=== PATIENT | female | born 1950 | race Hispanic/Latino ===

== ENCOUNTER → 2019-02-12 | Outpatient (CLI) | payer MEDICARE | END | disposition home or self-care (01) | LOC: SHCH 13:12 | PROVIDERS: ATTEND Internal Medicine Cardiovascular Disease | DX: I35.1 Nonrheumatic aortic (valve) insufficiency (principal) | CPT/HCPCS: 93306 ==

== ENCOUNTER → 2019-02-14 | Outpatient (CLI) | payer MEDICARE ==
[~2019-02-14] VITALS: Ht 152.4 cm; Wt 83.0 kg
[~2019-02-14] MED LIST: REGADENOSON 0.4 MG/5 ML PF SYG IVP SCH
== END | disposition home or self-care (01) ==
LOC: SHCH 07:49
PROVIDERS: ATTEND Internal Medicine Cardiovascular Disease
DX: R94.31 Abnormal electrocardiogram [ECG] [EKG] (principal)
CPT/HCPCS: 78452; 93017; 96374; A9500 ×2; J2785

== ENCOUNTER 2024-11-25 19:49 | Emergency (ER) | payer MEDICARE, OTHER ==
[~2024-11-25] VITALS: Ht 154.9 cm; Wt 83.0 kg
[2024-11-25] MEDS: GABAPENTIN 300 MG CAPSULE PO ONE (20:44)
[2024-11-25] MEDS: ketOROlac 15MG/ML VIAL (15MG/ML) IV ONE (20:44)
[2024-11-25] MEDS: morPHINE 2 MG SYG IVP ONE (20:45)
--- NOTE | 2024-11-25 22:46 | HMCIMG ---
US VENOUS DOPPLER UNILATERAL HISTORY: Pain COMPARISON: None TECHNIQUE: Left lower extremity venous Doppler ultrasound study was performed. FINDINGS: The left common femoral, femoral, popliteal, and posterior tibial veins are visualized. Normal flow with augmentation and compressibilities are demonstrated. Left greater saphenous vein is patent. IMPRESSION: 1. No evidence of deep venous thrombosis is seen.
--- NOTE | 2024-11-25 22:50 | HMCIMG ---
US ARTERIAL UNILA LOW EXT DUPL HISTORY: Left lower extremity arterial occlusion COMPARISON: None TECHNIQUE: Left lower extremity arterial Doppler ultrasound study was performed. FINDINGS: Normal triphasic and biphasic arterial waveforms are noted in the left common femoral, deep femoral, superficial femoral, popliteal, posterior tibial and dorsalis pedal arteries. On the lateral, the peak systolic velocity of the common femoral artery is 174 cm/s, the proximal femoral artery is 144 cm/s, the mid femoral artery is 117 cm/s, the distal femoral artery is 119 cm/s, the proximal popliteal artery is 121 cm/s, the distal popliteal artery is 110 cm/s, the anterior tibial artery is 119 cm/s, the posterior tibial artery artery is 117 cm/s,and the dorsalis pedal artery is 106 cm/s. IMPRESSION: 1. Atherosclerotic disease. 2. Otherwise normal triphasic and biphasic arterial waveforms noted of the left lower extremity artery system.
[2024-11-25 23:20] VITALS: BP 162/60; PULSE 78; RESP 18; TEMP 98.1; O2SAT 95
--- NOTE | 2024-11-25 23:21 | ERN ---
General Chief Complaint: Lower Extremity Pain/Injury Stated Complaint: LEFT SCIATICA/LEG PAIN Time Seen by MD: 19:52 Time Seen by Midlevel: 19:52 Source: patient History of Present Illness Initial Comments The patient is a 74-year-old female being brought in by EMS for evaluation of left lower extremity pain that has been ongoing for the last week. Patient was seen at [facility] twice in the last four days and was diagnosed with sciatica. The patient already had x-rays and CT scans performed which were all negative. Today she reports with continued pain. The pain is isolated to her left lateral thigh area and radiates down to her left heel. The pain is described as a burning sensation. Allergies: Coded Allergies: No Known Drug Allergies (Verified Allergy, 07/30/13) Past Medical History Past Medical History: Diabetes-Type II Past Surgical History: None ROS Dictation CONSTITUTIONAL: Negative except for HPI HEAD/FACE: Negative except for HPI EENT: Negative except for HPI RESPIRATORY: Negative except for HPI GASTROINTESTINAL/ABDOMINAL: Negative except for HPI GENITOURINARY: Negative except for HPI MUSCULOSKELETAL: Negative except for HPI INTEGUMENTARY: Negative except for HPI NEUROLOGICAL/PSYCH: Negative except for HPI HEMATOLOGIC/LYMPHATIC: Negative except for HPI All Systems Negative, Except as noted above. 13 point review of systems assessed and all negative except for above. Physical Exam Physical Exam Dictation Vital Signs reviewed General Appearance: Alert, oriented x 3, no acute distress, well developed, nourished. Head and Face: non-traumatic. Eyes: PERRL, pink conjunctivas, eyelid no trauma, anterior chamber with arcus senilis. Ears: Pinnas intact and no signs of trauma or erythema ear canals clear and no discharge TM no erythema Nose: No discharge, no bleeding. Oropharynx: Mouth normal, tongue pink, pharynx clear,no erythema, tonsils no exudates, no abscesses noted, mucous membrane moist Neck: Supple, non-tender, no thyromegaly, no masses, no JVD, no bruits Breast:Deferred Chest:No tenderness, no crepitus, no paradoxical movement, no retractions Lungs:Clear, well-ventilated, symmetric, no rales, no wheezing, no rhonchi, no stridor, good breath sounds bilaterally Heart: Regular rate, regular rhythm, no murmur, no gallops Vascular: no peripheral edema, Abdomen: Soft, positive bowel sounds, nondistended, no guarding, nontender, no rebound, no masses no hepatomegaly, no splenomegaly, no Garcia's sign, no hernias. Rectal: Deferred Genital: Deferred Neurological: Normal speech, motor function intact, sensory function intact Musculoskeletal: Neck nontender, full range of motion, back nontender, full range of motion, Extremities: nontender, full range of motion Skin: Color pink, dry, no turgor, no rash, no lacerations, no abrasions, no contusions. Lymphatic: Deferred MDM MDM: The patient is a 74-year-old female being brought in by EMS for evaluation of left lower extremity pain that has been ongoing for the last week. Patient was seen at [facility] twice in the last four days and was diagnosed with sciatica. The patient already had x-rays and CT scans performed which were all negative. Today she reports with continued pain. The pain is isolated to her left lateral thigh area and radiates down to her left heel. The pain is described as a burning sensation. Initial vital signs are stable. On physical examination there are no obvious signs of external trauma. There was no gross swelling. There is 2+ DP, PT p ulses bilaterally. Patient was given Toradol and morphine in the emergency department and states her pain only improved slightly. A Doppler and arterial ultrasound were performed to rule out an acute arterial occlusion versus DVT however both ultrasounds are negative. After 3 hours in the emergency department the patient states her pain has resolved. She states she was an appointment with her primary care doctor tomorrow and we will be following up for possibly an outpatient referral to stage setting painter apprentice or Neurosurgery. Differential diagnosis: Sciatica, neuropathic pain, arterial occlusion, DVT There are no social concerns with this patient. Prescription drug management Prescriptions will include: None Medical management and examination interpretation discussions were had by me with other qualified healthcare professionals as indicated for the patient's care. ED Course Orders Procedure Category Date Status Time Ketorolac PHA 11/25/24 Complete Tromethamine 15mg/Ml 20:30 Gabapentin 300 Mg Cap PHA 11/25/24 Complete (Neurontin 300 Mg 20:30 Morphine 2mg Syg PHA 11/25/24 Complete (Morphine 2mg Syg) 20:30 Us Venous Doppler US 11/25/24 Resulted Unilateral 21:48 Us Arterial Unila Low US 11/25/24 Resulted Ext Dupl 22:04 Current Medications Medications (Trade) Dose Ordered Sig/Masood Route PRN Reason Start Time Stop Time Status Last Admin Dose Admin Gabapentin (NEURontin 300 MG CAP) 300 mg ONCE ONCE PO 11/25/24 20:30 11/25/24 20:31 DC 11/25/24 20:44 Ketorolac Tromethamine (toRADol) 15 mg ONCE ONCE IV 11/25/24 20:30 11/25/24 20:36 DC 11/25/24 20:44 Morphine Sulfate (morPHINE 2MG SYG) 2 mg ONCE ONCE IVP 11/25/24 20:30 11/25/24 20:31 DC 11/25/24 20:45 Vital Signs Date Time Temp Pulse Resp B/P (MAP) Pulse Ox O2 Delivery O2 Flow Rate FiO2 11/25/24 22:30 98.1 78 18 157/74 95 Room Air* 0 21 11/25/24 20:02 78 18 173/71 98 Room Air* 0 21 11/25/24 19:53 98.1 79 16 157/71 95 Room Air 0 DX & DISP Disposition: Discharge Departure Impression: Primary Impression: Neuropathic pain Condition: Stable Additional Instructions: Based on your physical examination it appears your pain is neuropathic in nature. You already had x-rays and CT scans performed that were all negative. Today we performed a venous ultrasound and an arterial ultrasound that are both normal. There was no evidence of a blood clot or arterial occlusion. Please keep appointment with your primary care doctor for tomorrow as scheduled. Continue taking the pain medication you were prescribed. You may need an outpatient follow up with either Neurology or Neurosurgery for further evaluation. You may even need a follow up with stage setting painter apprentice. Referrals: CALVIN RIBEIRO (PCP) Time of Disposition: 23:15 I have reviewed the case, and I agree with, Diagnosis and Plan I performed the substantive portion of the visit. I have reviewed and personally made and approve the management plan that is documented in the note by myself or the RADHA. I acknowledge for responsibility for the patient's manage ment plan. PEREZ CHO Nov 25, 2024 23:21
== END 2024-11-25 23:30 | disposition home or self-care (01) ==
LOC: EDH 19:49
DX: M79.2 Neuralgia and neuritis, unspecified (principal); E11.9 Type 2 diabetes mellitus without complications
CPT/HCPCS: 99285; 96374; 93971; 93926; 96375; J1885; J2270

== ENCOUNTER 2024-11-30 06:36 | Inpatient (IN) | payer OTHER ==
[~2024-11-30] VITALS: Ht 154.9 cm; Wt 80.6 kg
--- NOTE | 2024-11-30 06:48 | ERN ---
General Chief Complaint: Coffee Ground Emesis Stated Complaint: COFFEE GROUNDS EMESIS X 3 Time Seen by MD: 06:44 Source: patient, EMS History of Present Illness Initial Comments Patient is a 74-year-old female who is near bed-bound because of back pain and hip pain whenever she tries to walk. Her past medical history includes arthritis diabetes and hypercholesterolemia. In the last 18 hours she has had coffee-ground emesis x3. She has never had this before. She is suspicious that it is due to one of the numerous medications that have been started recently at her health care facility. The coffee-ground emesis has been associated with nausea and vomiting and symptoms of dyspepsia. No chest pain no shortness of breath no change in her bowel habits or urinary tract function. Allergies: Coded Allergies: No Known Drug Allergies (Verified Allergy, 07/30/13) Past Medical History Past Medical History: Arthritis, Diabetes-Type II, High Cholesterol Past Surgical History: None Constitutional: (-) chills, (-) diaphoresis, (-) fever, (-) malaise, (-) weakness, (-) other documentation EENTM: (-) eye pain, (-) blurred vision, (-) tearing, (-) double vision, (-) ear pain, (-) ear discharge, (-) nose pain, (-) nose congestion, (-) throat pain, (-) Throat swelling, (-) mouth pain, (-) tooth pain, (-) mouth swelling, (-) other documentation Respiratory: (-) cough, (-) orthopnea, (-) short of breath, (-) stridor, (-) wheezing, (-) other documentation Cardiovascular: (-) chest pain, (-) edema, (-) palpitations, (-) syncope, (-) dyspnea on exertion, (-) other documentation Gastrointestinal/Abdominal: (+) nausea, (+) vomiting, (+) abdominal pain Musculoskeletal: (-) Neck pain, (-) back pain, (-) Flank Pain, (-) joint pain, (-) joint swelling, (-) muscle pain, (-) muscle stiffness, (-) gout, (-) other documentation Skin: (-) laceration, (-) contusion, (-) abrasion, (-) abscess, (-) rash, (-) change in color, (-) change in hair, (-) change in nails, (-) diaphoresis, (-) dryness, (-) other documentation Neuro: (-) altered mental status, (-) headache, (-) syncope, (-) paralysis, (-) numbness, (-) seizure, (-) pre-existing deficit, (-) tremors, (-) weakness, (-) dizziness, (-) slurred speech, (-) vertigo, (-) other documentation Physical Exam General Appearance: (+) no apparent distress Orientation: (+) alert Head/Face Trauma: No Eye: bilateral eye normal inspection, bilateral eye PERRL, bilateral eye EOMI Ear, Nose, Throat: (+) hearing grossly normal, (+) normal ENT inspection, (+) moist mucous membraine, (+) normal pharynx Neck: (+) normal inspection, (+) supple, (+) full range of motion, (+) no JVD Respiratory: (+) chest non-tender, (+) lungs clear, (+) well ventilated Heart: (+) regular, (+) no gallop Vascular: (+) no edema, (+) normal peripheral pulse Gastrointestinal: (+) soft, (+) non-tender, (+) no organomegaly, (+) bowel sound present Results Laboratory and Microbiology Lab and Micro Result Laboratory Tests Test 11/30/24 06:55 White Blood Count 12.6 K/uL (4.8-10.8) H Red Blood Count 4.50 MIL/uL (4.00-5.50) Hemoglobin 13.6 g/dL (12.0-16.0) Hematocrit 41.5 % (36-48) Mean Corpuscular Volume 92.2 fL (79-99) Mean Corpuscular Hemoglobin 30.2 pg (27.0-33.0) Mean Corpuscular Hemoglobin Concent 32.8 g/dL (32.0-36.0) Red Cell Distribution Width 13.1 % (11.0-15.5) Platelet Count 454 K/uL (130-400) H Mean Platelet Volume 9.5 fL (7.5-10.5) Immature Granulocyte % (Auto) 0.6 % (0-1) Neutrophils (%) (Auto) 92.4 % (40.0-77.0) H Lymphocytes (%) (Auto) 4.1 % (21.0-51.0) L Monocytes (%) (Auto) 2.8 % (3.0-13.0) L Eosinophils (%) (Auto) 0.0 % (0.0-8.0) Basophils (%) (Auto) 0.1 % (0.0-5.0) Neutrophils # (Auto) 11.6 K/uL (1.8-7.7) H Lymphocytes # (Auto) 0.5 K/uL (1.0-4.8) L Monocytes # (Auto) 0.4 K/uL (0.1-1.0) Eosinophils # (Auto) 0.00 K/uL (0.00-0.70) Basophils # (Auto) 0.01 K/uL (0.00-0.20) Absolute Immature Granulocyte (auto 0.07 K/uL (0-1) Nucleated Red Blood Cells 0.0 % (0.0-0.19) White Cell Morphology Comment See comments Sodium Level 134 mmol/L (136-145) L Potassium Level 4.4 mmol/L (3.5-5.1) Chloride Level 98 mmol/L (101-111) L Carbon Dioxide Level 27 mmol/L (21-32) Blood Urea Nitrogen 27 mg/dL (7-18) H Creatinine 1.4 mg/dL (0.5-1.0) H Glomerular Filtration Rate Calc 39 mL/min (>90) Random Glucose 235 mg/dL (70-105) H Total Calcium 9.1 mg/dL (8.5-10.1) Total Bilirubin 0.6 mg/dL (0.2-1.0) Aspartate Amino Transf (AST/SGOT) 17 U/L (10-37) Alanine Aminotransferase (ALT/SGPT) 18 U/L (12-78) Alkaline Phosphatase 178 U/L (50-136) H Total Protein 7.3 g/dL (6.0-8.3) Albumin 3.3 g/dL (3.5-5.0) L Labs Reviewed?: Yes EKG/XRAY/US/CT/MRI CT Scan Comment IMAGING REPORT Signed PATIENT: JESIKA CURTIS MR#: [id number] : 1950 SEX: F AGE: 74 LOCATION: [facility] ORDER 9 STATUS: REG ER REPORT#: [id number] SERVICE 8 REASON: hematamesis ORDERING PHYSICIAN: JORDY SANDOVAL MD PROCEDURE: ABD PEL WO - CT ABDOMEN/PELVIS W/O CONTRAST CT ABDOMEN/PELVIS W/O CONTRAST HISTORY: Hematemesis COMPARISON: None TECHNIQUE: Multiple sequential axial images of the abdomen and pelvis were obtained from the dome of the diaphragm through symphysis pubis. Patient was not given contrast through intravenous route. Oral contrast was not given. FINDINGS: No pleural effusion is seen bilaterally. There are mild interstitial fibrosis with bronchiectasis. Nonspecific pleural thickening is seen on the right. There is no evidence of parenchymal disease or pulmonary nodule of the visualized lower lungs. Grade 2 to grade 3 anterolisthesis is seen at the L5-S1 level with disc space narrowing and no foraminal stenosis. Bilateral L5 pars defects are seen. Degenerative changes of the thoracolumbar spine are present. The heart is not enlarged. Gallstones are seen in the distended gallbladder. There is gastric distention. Mild small bowel dilatation is seen. The liver, spleen, adrenal glands and pancreas are unremarkable. There is no evidence of hydronephrosis bilaterally. No evidence of renal stone is seen. Fecal material is seen in the colon. There are normal size retroperitoneal and mesenteric lymph nodes. No ascites is seen. Atherosclerotic changes are present. Uterus is enlarged suggestive of fibroid uterus. Destructive changes with fracture are seen involving the right inferior pubic ramus of indeterminate age. Pelvic sidewalls are symmetric bilaterally. Bladder is well distended without wall thickening. IMPRESSION: 1. Mild small bowel dilatation. Gallstones in the distended gallbladder. CT was performed with one or more following dose reduction techniques: automated exposure control, adjustment of the mA and kv according to patient's size, or use of a iterative reconstruction technique. DICTATED BY: CHINA ÁLVAREZ MD DATE: 11/30/24904 ELECTRONICALLY SIGNED BY: CHINA ÁLVAREZ MD DATE: 11/30/24909 MDM Assuming patient has true coffee-ground emesis we will order a CBC a chemistry panel, including LFTs, and guaiac stool. We will start IV proton pump inhibitors. MDM: Differential diagnosis: Hematemesis, small-bowel dilation, Rationale: Tests considered and ordered secondary to shared decision making include: labs, ECG and radiology Previous outside records reviewed: Old ER visits. Risk of complication and/or morbidity or mortality of patient management: None Medications-Per medication reconciliation Need for hospitalization: Patient does meet criteria for hospitalization. Need for emergency major/minor surgery: No There are no social concerns with this patient. Prescription drug management Prescriptions will include symptomatic care Patient's prior external medical records from other ER visits were reviewed by me as indicated. Prior testing and results from previous visits were reviewed. Prior tests were taken into account with medical decision making and resource utilization, independent historian/historians were used to obtain complete medical history. I independently interpreted the test that were performed, results were reviewed by me and considered findings on radiology if ordered. Medical management and examination interpretation discussions were had by me with other qualified healthcare professionals as indicated for the patient's care. Patient is a 74-year-old female coming in due to coffee-ground hematemesis. Patient will be admitted under the care of hospitalist group for ongoing management. ED Course Orders Procedure Category Date Status Time Comprehensive LAB 11/30/24 Complete Metabolic Panel 06:50 Cbc With Differential LAB 11/30/24 Complete 06:50 Pantoprazole 40mg Inj PHA 11/30/24 In Process (Protonix 40mg Inj 09:00 Occult Blood Stool LAB 11/30/24 Logged Single Only 06:50 Lactated Ringers PHA 11/30/24 Complete 1000ml (Lactated 07:00 Ondansetron 4mg Inj PHA 11/30/24 In Process (Zofran 4mg Inj) 07:00 Pantoprazole 40mg Inj PHA 11/30/24 Complete (Protonix 40mg Inj 06:58 Ct Abdomen/Pelvis W/O CT 11/30/24 Resulted Contrast 08:29 Current Medications Medications (Trade) Dose Ordered Sig/Masood Route PRN Reason Start Time Stop Time Status Last Admin Dose Admin Lactated Ringer's (Lactated Ringers 1000ml) 1,000 ml BOLUS ONCE IV 11/30/24 07:00 11/30/24 07:01 DC 11/30/24 07:00 Ondansetron HCl (zoFRAN 4MG INJ) 4 mg Q6H PRN IVP NAUSEA/VOMITING 11/30/24 07:00 12/30/24 06:59 11/30/24 07:00 Pantoprazole Sodium (PROTonix 40MG INJ) 40 mg BID IVP 11/30/24 09:00 12/30/24 08:59 11/30/24 07:00 Pantoprazole Sodium (PROTonix 40MG INJ) 40 mg STK-MED ONCE .ROUTE 11/30/24 06:58 11/30/24 07:02 DC Vital Signs Date Time Temp Pulse Resp B/P (MAP) Pulse Ox O2 Delivery O2 Flow Rate FiO2 11/30/24 08:42 98.6 89 15 146/71 97 Room Air* 0 21 11/30/24 07:26 98.1 93 15 142/66 96 Room Air* 0 21 11/30/24 06:50 99.7 89 18 136/85 94 Room Air* 0 21 11/30/24 06:37 99.9 95 15 136/75 93 Room Air 0 DX & DISP Disposition: Inpatient Decision to Admit Time: 09:30 Departure Impression: Primary Impression: Hematemesis Additional Impression: Gastroenteritis Condition: Stable Referrals: CALVIN RIBEIRO (PCP) FLO LÓPEZ MD November 30, 2024 06:48 JORDY SANDOVAL MD November 30, 2024 09:17
[2024-11-30] MEDS: PANTOPrazole 40 MG/VIAL IVP SCH (07:00)
[2024-11-30] MEDS: LACTATED RINGERS 1000ML IV ONE (07:00)
[2024-11-30] MEDS: ondanSETRON 4MG INJ IVP PRN (07:00)
[2024-11-30] MEDS: PANTOPrazole 40 MG/VIAL ONE (07:09)
[2024-11-30 07:14] LABS: BASOPHILS # (AUTO) 0.01 K/uL (0.00-0.20); BASOPHILS % (AUTO) 0.1 % (0.0-5.0); HEMATOCRIT 41.5 % (36-48); IMMATURE GRANULOCYTE ABSOLUTE 0.07 K/uL (0-1); LYMPHOCYTES # (AUTO) 0.5 K/uL (1.0-4.8); LYMPHOCYTES % (AUTO) 4.1 % (21.0-51.0); MEAN CORPUSCULAR HEMOGLOBIN 30.2 pg (27.0-33.0); MEAN CORPUSCULAR HGB CONC 32.8 g/dL (32.0-36.0); MEAN CORPUSCULAR VOLUME 92.2 fL (79-99); MONOCYTES # (AUTO) 0.4 K/uL (0.1-1.0); MONOCYTES % (AUTO) 2.8 % (3.0-13.0); NEUTROPHILS # (AUTO) 11.6 K/uL (1.8-7.7); NEUTROPHILS % (AUTO) 92.4 % (40.0-77.0); PLATELET COUNT (AUTO) 454 K/uL (130-400); RED CELL DISTRIBUTION WIDTH 13.1 % (11.0-15.5); WHITE BLOOD COUNT (AUTO) 12.6 K/uL (4.8-10.8)
[2024-11-30 07:22] LABS: ALBUMIN 3.3 g/dL (3.5-5.0); BILIRUBIN,TOTAL 0.6 mg/dL (0.2-1.0); CREATININE 1.4 mg/dL (0.5-1.0); POTASSIUM 4.4 mmol/L (3.5-5.1); TOTAL PROTEIN, SERUM 7.3 g/dL (6.0-8.3)
--- NOTE | 2024-11-30 09:10 | HMCIMG ---
CT ABDOMEN/PELVIS W/O CONTRAST HISTORY: Hematemesis COMPARISON: None TECHNIQUE: Multiple sequential axial images of the abdomen and pelvis were obtained from the dome of the diaphragm through symphysis pubis. Patient was not given contrast through intravenous route. Oral contrast was not given. FINDINGS: No pleural effusion is seen bilaterally. There are mild interstitial fibrosis with bronchiectasis. Nonspecific pleural thickening is seen on the right. There is no evidence of parenchymal disease or pulmonary nodule of the visualized lower lungs. Grade 2 to grade 3 anterolisthesis is seen at the L5-S1 level with disc space narrowing and no foraminal stenosis. Bilateral L5 pars defects are seen. Degenerative changes of the thoracolumbar spine are present. The heart is not enlarged. Gallstones are seen in the distended gallbladder. There is gastric distention. Mild small bowel dilatation is seen. The liver, spleen, adrenal glands and pancreas are unremarkable. There is no evidence of hydronephrosis bilaterally. No evidence of renal stone is seen. Fecal material is seen in the colon. There are normal size retroperitoneal and mesenteric lymph nodes. No ascites is seen. Atherosclerotic changes are present. Uterus is enlarged suggestive of fibroid uterus. Destructive changes with fracture are seen involving the right inferior pubic ramus of indeterminate age. Pelvic sidewalls are symmetric bilaterally. Bladder is well distended without wall thickening. IMPRESSION: 1. Mild small bowel dilatation. Gallstones in the distended gallbladder. CT was performed with one or more following dose reduction techniques: automated exposure control, adjustment of the mA and kv according to patient's size, or use of a iterative reconstruction technique.
--- NOTE | 2024-11-30 10:01 | HP ---
[facility] HISTORY AND PHYSICAL Date of Service: November 30, 2024 Time of Service: 10:01 HISTORY OF PRESENT ILLNESS: 74-year-old female with past medical history of hypertension, hypothyroidism, diabetes mellitus type who presented to the hospital secondary to nausea and vomiting. Patient states pain she noted that she had vomiting which was dark colored. Daughter noted that patient had some saliva and she has been having episodes of burping at home. She reports pain in the midsternal/epigastric area she describes as noted. She denied any upper extremity pain, paresthesias. She denied any fever, chills, shortness of breath, cough. Denied any diarrhea. She has not had a bowel movement since yesterday but has been passing flatus. She was recently seen in [facility] secondary to lower back pain which was radiating towards her leg. She had a arterial Doppler which showed atherosclerotic disease, venous Doppler which was negative for lower extremity DVT. She followed up with her primary care provider and was diagnosed with sciatica. She is being worked up for sciatica and we will be having a MRI of her lower back in the future. Secondary to the pain she has been mostly in bed. She had a lower extremity massage done and noted some bruising. She currently denies taking any antiplatelet or anticoagulant. She is able to swallow her saliva and was able to tolerate pudding yesterday. She has been taking steroids at home and denies using any NSAID therapy at home for her back pain. Secondary to non improving symptoms, patient thereafter came to the hospital for further evaluation. Labs in the ED were notable for white count of 12.6, hemoglobin was 13.6, platelet count was 454 K, sodium was 134, potassium was 4.4, creatinine is 1.4, glucose is 235, alk-phos was mildly elevated, T bili was normal, AST and ALT were also normal. The patient underwent a CT abdomen pelvis. She had mild small dilation. She was noted to have gastric distention, gallstones and distended gallbladder. REVIEW OF SYSTEMS CONSTITUTIONAL: Denies fevers, chills, or night sweats. No unintentional weight loss reported. NEUROLOGICAL: Denies headache, amaurosis fugax, motor weakness, sensory deficit, vertigo/spinning sensation, gait abnormalities, or tremors. ENT: No hearing loss, otalgia, otorrhea, rhinitis, rhinorrhea, hoarseness, or sore throat. CARDIOVASCULAR: Denies any exertional angina, dyspnea on exertion, orthopnea, paroxysmal nocturnal dyspnea, palpitations, life-threatening arrhythmias, claudication. PULMONARY: Denies any shortness of breath, cough, phlegm/sputum, hemoptysis, pleuritic chest pain. GASTROINTESTINAL: Positive Abdominal pain, nausea, vomiting. Denied any melena, hematochezia, diarrhea. GENITOURINARY: Denies frequency, urgency, nocturia, hematuria or incontinence (Storage/Irritative symptoms.) Low urinary stream, straining to void, urinary intermittency or hesitancy, splitting of the voiding stream, terminal dribbling. ENDOCRINOLOGIC: Denies polyuria, polydipsia, polyphagia or heat/cold intolerances. HEMATOLOGIC: Denies thrombophilia/previous clots, or coagulopathy/bleeding disorders. ONCOLOGIC: Denies personal history of malignancy. DERMATOLOGIC: Denies rashes or pruritus. PSYCHIATRIC: Denies any suicidal or homicidal ideation. Denies hallucinations. PAST MEDICAL HISTORY: Hypertension, hypothyroidism, diabetes mellitus type 2, recently diagnosed sciatica PAST SURGICAL HISTORY: Denied any surgical history PAST SOCIAL HISTORY: Denied any smoking, alcohol, drug use FAMILY HISTORY: Denied any pertinent family history Coded Allergies: No Known Drug Allergies (Verified Allergy, 07/30/13) PHYSICAL EXAM GENERAL APPEARANCE: The patient is awake, alert, and oriented, in no acute cardiopulmonary distress. NEUROLOGICAL: Cranial nerves II-XII grossly intact. Motor is 5/5 in bilateral upper and lower extremities proximal to distal. No sensory deficits. HEENT: Face is symmetric. Pupils are equal and reactive. Extraocular movements are intact. NECK: Supple. No JVD. No thyromegaly. No submental, submandibular, pre- /postauricular, occipital or supraclavicular lymphadenopathy. CHEST: Normal chest expansion. No Telemetry. LUNGS: Absence of any rales, rhonchi or any wheezing. CARDIOVASCULAR: Regular. S1 and S2 normal. No appreciable rubs, murmurs or gallops. ABDOMEN: Soft, nontender, and nondistended. There is no rebound, voluntary guarding, or rigidity. : Deferred. No Dunbar. EXTREMITIES: Patient has bruising noted in the right lower extremity. She is able to move her knee and hip without issues SKIN: No skin breakdown. Vital Sign (Last 24 Hours) 11/30/24 08:42 Temp 98.6 Pulse 89 Resp 15 B/P (MAP) 146/71 Pulse Ox 97 O2 Delivery Room Air* O2 Flow Rate 0 FiO2 21 LABS: Laboratory: Test 11/30/24 06:55 Range/Units White Blood Count 12.6 H 4.8-10.8 K/uL Red Blood Count 4.50 4.00-5.50 MIL/uL Hemoglobin 13.6 12.0-16.0 g/dL Hematocrit 41.5 36-48 % Mean Corpuscular Volume 92.2 79-99 fL Mean Corpuscular Hemoglobin 30.2 27.0-33.0 pg Mean Corpuscular Hemoglobin Concent 32.8 32.0-36.0 g/dL Red Cell Distribution Width 13.1 11.0-15.5 % Platelet Count 454 H 130-400 K/uL Mean Platelet Volume 9.5 7.5-10.5 fL Immature Granulocyte % (Auto) 0.6 0-1 % Neutrophils (%) (Auto) 92.4 H 40.0-77.0 % Lymphocytes (%) (Auto) 4.1 L 21.0-51.0 % Monocytes (%) (Auto) 2.8 L 3.0-13.0 % Eosinophils (%) (Auto) 0.0 0.0-8.0 % Basophils (%) (Auto) 0.1 0.0-5.0 % Neutrophils # (Auto) 11.6 H 1.8-7.7 K/uL Lymphocytes # (Auto) 0.5 L 1.0-4.8 K/uL Monocytes # (Auto) 0.4 0.1-1.0 K/uL Eosinophils # (Auto) 0.00 0.00-0.70 K/uL Basophils # (Auto) 0.01 0.00-0.20 K/uL Absolute Immature Granulocyte (auto 0.07 0-1 K/uL Nucleated Red Blood Cells 0.0 0.0-0.19 % White Cell Morphology Comment See comments Sodium Level 134 L 136-145 mmol/L Potassium Level 4.4 3.5-5.1 mmol/L Chloride Level 98 L 101-111 mmol/L Carbon Dioxide Level 27 21-32 mmol/L Blood Urea Nitrogen 27 H 7-18 mg/dL Creatinine 1.4 H 0.5-1.0 mg/dL Glomerular Filtration Rate Calc 39 >90 mL/min Random Glucose 235 H 70-105 mg/dL Total Calcium 9.1 8.5-10.1 mg/dL Total Bilirubin 0.6 0.2-1.0 mg/dL Aspartate Amino Transf (AST/SGOT) 17 10-37 U/L Alanine Aminotransferase (ALT/SGPT) 18 12-78 U/L Alkaline Phosphatase 178 H 50-136 U/L Total Protein 7.3 6.0-8.3 g/dL Albumin 3.3 L 3.5-5.0 g/dL Current Medications Medications (Trade) Dose Ordered Sig/Masood Route PRN Reason Start Time Stop Time Status Last Admin Dose Admin Ondansetron HCl (zoFRAN 4MG INJ) 4 mg Q6H PRN IVP NAUSEA/VOMITING 11/30/24 07:00 12/30/24 06:59 11/30/24 07:00 4 MG Pantoprazole Sodium (PROTonix 40MG INJ) 40 mg BID IVP 11/30/24 09:00 12/30/24 08:59 11/30/24 07:00 40 MG DIAGNOSTICS / RADIOLOGY: [ ] ASSESSMENT: Coffee-ground emesis POA Gastric distention POA differential gastric outlet obstruction versus peptic ulcer disease versus gastroparesis from underlying diabetes Cholelithiasis Midsternal/epigastric abdominal pain differential POD versus secondary to symptomatic cholelithiasis versus ACS Lower back pain differential secondary to sciatica being worked as outpatient Mild leukocytosis differential reactive versus infection Hypertension Hypothyroidism Diabetes mellitus type 2 Debility PLAN: - patient to be admitted to P[facility]U -in reference to coffee-ground emesis. Patient will be started on Protonix drip. We will check H&H q.6 hours. Stool guaiac was ordered in the ED. we will request consultation with GI consultation. - reference to gastric distention. Patient will be NPO for now. We will start patient on IV fluids. We will request consultation with General surgery -reference to leukocytosis. We will monitor for fevers. Patient will be started on Rocephin. -reference to cholelithiasis. We will obtain right upper quadrant ultrasound -check TSH, A1c -obtain home medications she will be reconciled once available -once the patient is stable with her underlying GI workup. We will consider MRI of the lower back either inpatient versus an outpatient depending on patient's clinical status. Advanced Care Planning Which of the following were discussed: Hospice care: Yes __ No _x_ Therapeutic options: Yes __ No __ Advance directives: Yes __ No __ Other discussions: Pt is full code Discussed with who?: patient Voluntary nature of this service was explained to the patient? Yes _x_ No __ Amount of time spent: 25 minutes GISSELLE Tracey MD, MD November 30, 2024 10:01
[2024-11-30] MEDS ORDERED: hydrALAZine 20MG/ML VIAL IV PRN (10:30)
[2024-11-30 10:44] LABS: PROTHROMBIN TIME 10.6 SEC (9.6-11.6)
[2024-11-30] MEDS: 0.9%NACL 1000ML 1,000 ML IV SCH (10:44)
[2024-11-30] MEDS: cefTRIAXone 1G VIAL IVPB SCH (10:44)
[2024-11-30] MEDS: PANTOPrazole 40MG INJ 80 MG in 0.9%NACL 100ML 100 ML IVP SCH (10:44)
[2024-11-30 10:45] LABS: PARTIAL THROMBOPLASTIN TIME 25.9 SEC (26.3-35.5)
[2024-11-30 10:53] LABS: HEMOGLOBIN A1C 6.9 % (4.0-6.0)
[2024-11-30 11:17] LABS: HEMATOCRIT 40.4 % (36-48); THYROID STIMULATING HORMONE 3.63 uIU/mL (0.36-3.74)
[2024-11-30] MEDS ORDERED: PREG25CA19 PO (11:23)
[2024-11-30] MEDS ORDERED: GABA-529 PO (11:23)
[2024-11-30] MEDS ORDERED: ONDA-104 PO (11:23)
[2024-11-30] MEDS ORDERED: PRED20TA3 PO (11:23)
[2024-11-30] MEDS ORDERED: EMPA10TA PO (11:23)
[2024-11-30] MEDS ORDERED: LEVO75CA6 PO (11:23)
[2024-11-30] MEDS ORDERED: SEMA7TAB2 PO (11:24)
[2024-11-30] MEDS ORDERED: GLIP10TA16 PO (11:24)
[2024-11-30] MEDS: INSULIN humuLIN R 100 UNIT/ML 3ML SQ SCH (11:55)
[2024-11-30 12:35] VITALS: BP 142/74; PULSE 89; RESP 18; TEMP 98.8
[2024-11-30 13:02] VITALS: O2SAT 95
--- NOTE | 2024-11-30 13:52 | HMCIMG ---
US ABDOMINAL RUQ\E\LTD HISTORY: Distended gallbladder COMPARISON: None TECHNIQUE: Right upper quadrant abdominal ultrasound study was performed. FINDINGS: Liver measures 13 cm. Pancreas not well-seen due to overlying bowel gas. Liver is echogenic consistent with liver parenchymal disease. Gallbladder is contracted with gallstones. Common duct measures 6 mm. Gallbladder wall measures 3 mm. Right kidney is not well visualized limiting evaluation. IMPRESSION: 1. Gallstones in the contracted gallbladder. 2. Right kidney is not visualized.
--- NOTE | 2024-11-30 14:39 | EKG ---
[facility] Test Date: 2024-11-30 Test Time: 10:08:10 Pat Name: JESIKA CURTIS Department: [facility] Room: 411 1 Gender: F Medical Physicist: [id number] : 1950 Requested By: GISSELLE ESTRADA Order Number: [id number] Reading MD: Sebastian Bowen Measurements Intervals [place] Rate: 93 P: 59 IL: 243 QRS: 11 QRSD: 86 T: 187 QT: 356 QTc: 442 Interpretive Statements Sinus rhythm Prolonged IL interval Nonspecific repol abnormality, diffuse leads No previous ECG available for comparison Electronically Signed On 12-01-2024 11:08:00 CDT by Sebastian Bowen Please click the below link to view image of tracing.
[2024-11-30] MEDS: hydroMORPHone 0.5 MG SYG (0.5MG/0.5ML) IVP PRN (14:58)
[2024-11-30 16:00] VITALS: BP 116/59; PULSE 89; RESP 16; TEMP 99.1
--- NOTE | 2024-11-30 17:02 | CONS ---
CONSULT NOTE: Consulting physician:Dr Cedeño Consulting service: General surgery Reason for consultation: Gastric distention History of present illness: This is a 74-year-old female with a medical history listed below that has been consulted to surgery after presenting to the hospital with concerns of multiple episodes of coffee appearing emesis. After conversation with daughter concerns that patient possibly took an liquids differently causing her to feel nauseous and vomit. GI team has been consulted and upper GI pending for Monday. However upon evaluation the patient's charts notes of distended gallbladder is on both images performed. LFTs unremarkable at this time. Patient with no acute concerns reported at this time were abdominal pain noted Medical history: Arthritis and diabetes Surgical history: Review of systems: General: No Fever, No Chills, No Night Sweats, No Fatigue, No Malaise, No Appetite, No Other HEENT: No Head Aches, No Visual Changes, No Eye Pain, No Ear Pain, No Dysphasia, No Sinus Congestion, No Post Nasal Drip, No Sore Throat, No Other Pulmonary: No Dyspnea, No Cough, No Pleuritic Chest Pain, No Other Cardiovascular: No: Chest Pain, Palpitations, Orthopnea, Paroxysmal No Dyspnea, Edema, Lt Headedness, Other Gastrointestinal: No: Nausea, Vomiting, Diarrhea, Constipation, Melena, Hematochezia, Other Genitourinary: No Dysuria, No Frequency, No Incontinence, No Hematuria, No Retention, No Other Musculoskeletal: No: other, neck pain, shoulder pain, arm pain, back pain, hand pain, leg pain, foot pain Skin: No Urticaria, No Rash, No Other Neurological: No: Weakness, Numbness, Incoordination, Change in speech, Confusion, Seizures, Other Physical exam: General: Awake alert and oriented Heart: Regular rate and rhythm} Lungs: Clear to auscultation no distress Abdomen: [Soft, nontender, nondistended Assessment: This is a 74-year-old female consulted to surgery for concerns of gastric distention with imaging concerning for gallbladder distention Plan: At this point in time we will order HIDA scan to evaluate for concerns of possible cholecystitis due to concerning imaging reporting distended gallbladder and patient's abdominal pain initially We will continue to defer to GI for concerns of coffee-ground emesis Patient to remain NPO until further indicated Unclear source of discomfort Surgical team to continue following patient and nursing report any further acute events JOS WORLEY Jr. November 30, 2024 17:02
[2024-11-30 20:00] VITALS: BP 141/65; PULSE 89; RESP 20; TEMP 98.2; O2SAT 95
--- NOTE | 2024-11-30 22:22 | HMCIMG ---
NM HIDA/HEPATOBILI W/ PHARMACO REASON: rule cholecystitis. COMPARISON: None TECHNIQUE: Hepatobiliary imaging study was performed with 6.5 mCi of technetium Choletec through intravenous route. FINDINGS: Normal visualization of gallbladder and bowel activity noted within 1 hour. IMPRESSION: Normal hepatobiliary imaging study.
[2024-11-30 22:40] LABS: HEMATOCRIT 35.3 % (36-48)
[2024-12-01] VITALS (8 sets, daily range): BP systolic 113–161; BP diastolic 54–77; PULSE 83–90; RESP 18–20; TEMP 98.1–98.8; O2SAT 92–98
[2024-12-01] MEDS: levoTHYROxine 75 MCG TABLET PO SCH (05:42)
[2024-12-01 06:23] LABS: HEMATOCRIT 35.4 % (36-48)
[2024-12-01 06:59] LABS: CREATININE 1.5 mg/dL (0.5-1.0); POTASSIUM 4.1 mmol/L (3.5-5.1)
[2024-12-01 07:15] LABS: BASOPHILS # (AUTO) 0.04 K/uL (0.00-0.20); BASOPHILS % (AUTO) 0.4 % (0.0-5.0); EOSINOPHILS # (AUTO) 0.03 K/uL (0.00-0.70); EOSINOPHILS % (AUTO) 0.3 % (0.0-8.0); HEMATOCRIT 35.4 % (36-48); IMMATURE GRANULOCYTE ABSOLUTE 0.05 K/uL (0-1); LYMPHOCYTES # (AUTO) 1.9 K/uL (1.0-4.8); LYMPHOCYTES % (AUTO) 16.3 % (21.0-51.0); MEAN CORPUSCULAR HEMOGLOBIN 30.5 pg (27.0-33.0); MEAN CORPUSCULAR HGB CONC 32.2 g/dL (32.0-36.0); MEAN CORPUSCULAR VOLUME 94.7 fL (79-99); MONOCYTES # (AUTO) 1.2 K/uL (0.1-1.0); MONOCYTES % (AUTO) 10.2 % (3.0-13.0); NEUTROPHILS # (AUTO) 8.2 K/uL (1.8-7.7); NEUTROPHILS % (AUTO) 72.4 % (40.0-77.0); PLATELET COUNT (AUTO) 440 K/uL (130-400); RED BLOOD CELL COUNT(AUTO) 3.74 MIL/uL (4.00-5.50); RED CELL DISTRIBUTION WIDTH 13.6 % (11.0-15.5); WHITE BLOOD COUNT (AUTO) 11.3 K/uL (4.8-10.8)
[2024-12-01] MEDS ORDERED: COMPOUND IV REFRIGERATED 1 EACH IVSOLN MISC PRN (08:00)
[2024-12-01] MEDS: GABAPENTIN 300 MG CAPSULE PO SCH (08:35)
[2024-12-01 11:18] LABS: HEMATOCRIT 33.1 % (36-48)
--- NOTE | 2024-12-01 12:00 | NUR ---
Pt giulia completed. Patient presets sufferin gfrom sciatic pain L>R from a fa Addendum: 12/01/24 at 1417 by JAMSE ARITA PT Amended: Links added.
--- NOTE | 2024-12-01 12:00 | NUR ---
PT giulia completed. Patient presents suffering from sciatic pain L>R following a slip and fall at home bto Addendum: 12/01/24 at 1417 by JAMES ARITA PT Amended: Links added.
--- NOTE | 2024-12-01 12:00 | NUR ---
PT giulia completed. Patient presents suffering from sciatic pain L>R following a slip and fall about one month ago. Patient has had massages with some improvement. Daughter states patient has not walked x 3 weeks and primarily lays in bed. Performed piriformis stretches to both legs with some relief in pain however once she attempts to move, pain returns. Patient would benefit from OP PT for this. Addendum: 12/01/24 at 1417 by JAMES ARITA PT Amended: Links added.
--- NOTE | 2024-12-01 13:08 | PN ---
[facility] PROGRESS NOTE Date of Service: December 01, 2024 Time of Service: 13:06 SUBJECTIVE: [ ] 12/01/24 patient was seen and examined. Case discussed with the RN and family by the bedside. Patient denies any GI complaints but is more concerned about lower extremity pain /started on Decadron and an MRI of the lumbar spinal be ordered. REVIEW OF SYSTEMS CONSTITUTIONAL: Denies fevers, chills, or night sweats. No unintentional weight loss reported. NEUROLOGICAL: Denies headache, amaurosis fugax, motor weakness, sensory deficit, vertigo/spinning sensation, gait abnormalities, or tremors. ENT: No hearing loss, otalgia, otorrhea, rhinitis, rhinorrhea, hoarseness, or sore throat. CARDIOVASCULAR: Denies any exertional angina, dyspnea on exertion, orthopnea, paroxysmal nocturnal dyspnea, palpitations, life-threatening arrhythmias, claudication. PULMONARY: Denies any shortness of breath, cough, phlegm/sputum, hemoptysis, pleuritic chest pain. GASTROINTESTINAL: Positive Abdominal pain, nausea, vomiting. Denied any melena, hematochezia, diarrhea. GENITOURINARY: Denies frequency, urgency, nocturia, hematuria or incontinence (Storage/Irritative symptoms.) Low urinary stream, straining to void, urinary intermittency or hesitancy, splitting of the voiding stream, terminal dribbling. ENDOCRINOLOGIC: Denies polyuria, polydipsia, polyphagia or heat/cold intolerances. HEMATOLOGIC: Denies thrombophilia/previous clots, or coagulopathy/bleeding disorders. ONCOLOGIC: Denies personal history of malignancy. DERMATOLOGIC: Denies rashes or pruritus. PSYCHIATRIC: Denies any suicidal or homicidal ideation. Denies hallucinations. PHYSICAL EXAM GENERAL APPEARANCE: The patient is awake, alert, and oriented, in no acute cardiopulmonary distress. NEUROLOGICAL: Cranial nerves II-XII grossly intact. Motor is 5/5 in bilateral upper and lower extremities proximal to distal. No sensory deficits. HEENT: Face is symmetric. Pupils are equal and reactive. Extraocular movements are intact. NECK: Supple. No JVD. No thyromegaly. No submental, submandibular, pre- /postauricular, occipital or supraclavicular lymphadenopathy. CHEST: Normal chest expansion. No Telemetry. LUNGS: Absence of any rales, rhonchi or any wheezing. CARDIOVASCULAR: Regular. S1 and S2 normal. No appreciable rubs, murmurs or gallops. ABDOMEN: Soft, nontender, and nondistended. There is no rebound, voluntary guarding, or rigidity. : Deferred. No Dunbar. EXTREMITIES: Patient has bruising noted in the right lower extremity. She is able to move her knee and hip without issues SKIN: No skin breakdown. Vital Signs (last 8hr) Date Time Temp Pulse Resp B/P (MAP) Pulse Ox O2 Delivery O2 Flow Rate FiO2 12/01/24 11:55 98.8 83 20 125/54 96 Room Air 21 12/01/24 08:00 98 Room Air* 0 21 12/01/24 07:10 98.1 88 20 150/62 92 Room Air 21 LABS: Laboratory: Test 12/01/24 11:09 12/01/24 11:03 12/01/24 05:36 11/30/24 10:06 Range/Units Whole Blood Glucose 109 70-110 MG/DL Hemoglobin 10.7 L 12.0-16.0 g/dL Hematocrit 33.1 L 36-48 % White Blood Count 11.3 H 4.8-10.8 K/uL Red Blood Count 3.74 L 4.00-5.50 MIL/uL Mean Corpuscular Volume 94.7 79-99 fL Mean Corpuscular Hemoglobin 30.5 27.0-33.0 pg Mean Corpuscular Hemoglobin Concent 32.2 32.0-36.0 g/dL Red Cell Distribution Width 13.6 11.0-15.5 % Platelet Count 440 H 130-400 K/uL Mean Platelet Volume 10.3 7.5-10.5 fL Immature Granulocyte % (Auto) 0.4 0-1 % Neutrophils (%) (Auto) 72.4 40.0-77.0 % Lymphocytes (%) (Auto) 16.3 L 21.0-51.0 % Monocytes (%) (Auto) 10.2 3.0-13.0 % Eosinophils (%) (Auto) 0.3 0.0-8.0 % Basophils (%) (Auto) 0.4 0.0-5.0 % Neutrophils # (Auto) 8.2 H 1.8-7.7 K/uL Lymphocytes # (Auto) 1.9 1.0-4.8 K/uL Monocytes # (Auto) 1.2 H 0.1-1.0 K/uL Eosinophils # (Auto) 0.03 0.00-0.70 K/uL Basophils # (Auto) 0.04 0.00-0.20 K/uL Absolute Immature Granulocyte (auto 0.05 0-1 K/uL Nucleated Red Blood Cells 0.0 0.0-0.19 % Sodium Level 136 136-145 mmol/L Potassium Level 4.1 3.5-5.1 mmol/L Chloride Level 102 101-111 mmol/L Carbon Dioxide Level 29 21-32 mmol/L Blood Urea Nitrogen 27 H 7-18 mg/dL Creatinine 1.5 H 0.5-1.0 mg/dL Glomerular Filtration Rate Calc 36 >90 mL/min Random Glucose 108 #H 70-105 mg/dL Total Calcium 8.6 8.5-10.1 mg/dL Hemoglobin A1c 6.9 H 4.0-6.0 % Estimated Average Glucose (eAG) 151 H 70-126 mg/dL Troponin I High Sensitivity 20 4-50 ng/L C-Reactive Protein, Quantitative 103.40 H 0.5-3.0 mg/L Lipase 28 16-77 U/L Procalcitonin 0.10 0.05-0.5 ng/mL Thyroid Stimulating Hormone (TSH) 3.63 0.36-3.74 uIU/mL Test 11/30/24 06:55 Range/Units White Cell Morphology Comment See comments Prothrombin Time 10.6 9.6-11.6 SEC Prothromb Time International Ratio 1.00 0.85-1.15 Activated Partial Thromboplast Time 25.9 L 26.3-35.5 SEC Total Bilirubin 0.6 0.2-1.0 mg/dL Aspartate Amino Transf (AST/SGOT) 17 10-37 U/L Alanine Aminotransferase (ALT/SGPT) 18 12-78 U/L Alkaline Phosphatase 178 H 50-136 U/L Total Protein 7.3 6.0-8.3 g/dL Albumin 3.3 L 3.5-5.0 g/dL Current Medications Medications (Trade) Dose Ordered Sig/Masood Route PRN Reason Start Time Stop Time Status Last Admin Dose Admin Ceftriaxone Sodium (ROCEphine 1G INJ) 1 gm Q24H IVPB 11/30/24 10:00 12/10/24 09:59 12/01/24 08:36 1 GM Gabapentin (NEURontin 300 MG CAP) 300 mg DAILY PO 12/01/24 09:00 12/31/24 08:59 12/01/24 08:35 300 MG Hydralazine HCl (APRESOLine 20MG INJ) 10 mg Q6H PRN IV ADMINISTER FOR SBP > 180 11/30/24 10:30 12/30/24 10:29 Hydromorphone HCl (DiLAUDid 0.5MG INJ) 0.5 mg Q6H PRN IVP SEVERE PAIN (7-10) 11/30/24 14:30 12/05/24 14:29 12/01/24 05:43 0.5 MG Insulin Human Regular (humuLIN R 100 UNIT/ML 3ML) INSULIN SLIDING SCAL... Q6H6 SQ 11/30/24 12:00 12/30/24 11:59 Levothyroxine Sodium (SYNTHroid 75MCG TAB) 75 mcg SYN PO 12/01/24 06:30 12/31/24 06:29 12/01/24 05:42 75 MCG Ondansetron HCl (zoFRAN 4MG INJ) 4 mg Q6H PRN IVP NAUSEA/VOMITING 11/30/24 07:00 12/30/24 06:59 11/30/24 07:00 4 MG Pantoprazole Sodium (PROTonix 40MG INJ) 40 mg BID IVP 11/30/24 09:00 11/30/24 12:17 DC 11/30/24 07:00 40 MG Pantoprazole Sodium 80 mg/ Sodium Chloride 100 ml @ 10 mls/hr Q10H IVP 11/30/24 10:00 12/30/24 09:59 12/01/24 08:36 10 MLS/HR Sodium Chloride 1,000 ml @ 100 mls/hr Q10H IV 11/30/24 10:00 12/30/24 09:59 11/30/24 10:44 100 MLS/HR DIAGNOSTICS / RADIOLOGY: [ ] ASSESSMENT: Coffee-ground emesis POA Gastric distention POA differential gastric outlet obstruction versus peptic ulcer disease versus gastroparesis from underlying diabetes Cholelithiasis Midsternal/epigastric abdominal pain differential POD versus secondary to symptomatic cholelithiasis versus ACS Lower back pain differential secondary to sciatica being worked as outpatient Mild leukocytosis differential reactive versus infection Hypertension Hypothyroidism Diabetes mellitus type 2 Debility PLAN: - patient to be admitted to PCCU -in reference to coffee-ground emesis. Patient will be started on Protonix drip. We will check H&H q.6 hours. Stool guaiac was ordered in the ED. we will request consultation with GI consultation. - reference to gastric distention. Patient will be NPO for now. We will start patient on IV fluids. We will request consultation with General surgery -reference to leukocytosis. We will monitor for fevers. Patient will be started on Rocephin. -reference to cholelithiasis. We will obtain right upper quadrant ultrasound -check TSH, A1c -obtain home medications she will be reconciled once available -once the patient is stable with her underlying GI workup. We will consider MRI of the lower back either inpatient versus an outpatient depending on patient's clinical status. Advanced Care Planning Which of the following were discussed: Hospice care: Yes __ No _x_ Therapeutic options: Yes __ No __ Advance directives: Yes __ No __ Other discussions: Pt is full code Discussed with who?: patient Voluntary nature of this service was explained to the patient? Yes _x_ No __ Amount of time spent: 25 minutes LAURIE Dawson MD, MD December 01, 2024 13:08
--- NOTE | 2024-12-01 14:07 | PN ---
This is a 79-year-old female consulted to surgery for concerns of abdominal discomfort Interval history: This 74-year-old female seen in her room resting No abdominal pain reported today Patient is more concerned with lower extremity discomfort Patient is sent for HIDA scan yesterday consistent with cholecystitis Physical exam General: Awake alert and oriented Heart: Regular rate and rhythm} Lungs: Clear to auscultation no distress Abdomen: [Soft, nontender, nondistended Lower extremity sciatic pain Assessment : This is a 74-year-old female consulted to surgery for concerns of abdominal pain which has resolved Plan: From surgical standpoint no further intervention planned Surgical team to sign off at this time Patient to continue with current medical management for sciatic discomfort Dr. Warner to be updated in patient's status Vitals/Labs Vital Signs Date Time Temp Pulse Resp B/P (MAP) Pulse Ox O2 Delivery O2 Flow Rate FiO2 12/01/24 11:55 98.8 83 20 125/54 96 Room Air 21 12/01/24 08:00 0 Laboratory Tests 11/30/24 17:07 11/30/24 22:31 12/01/24 05:36 12/01/24 11:03 Medications Current Medications Pantoprazole Sodium 40 mg BID IVP Last administered on 11/30/24at 07:00; Start 11/30/24 at 09:00; Stop 11/30/24 at 12:17; Status DC Lactated Ringer's 1,000 ml BOLUS ONCE IV Last administered on 11/30/24at 07:00; Start 11/30/24 at 07:00; Stop 11/30/24 at 07:01; Status DC Ondansetron HCl 4 mg Q6H PRN IVP Last administered on 11/30/24at 07:00; Start 11/30/24 at 07:00; Stop 12/30/24 at 06:59 Pantoprazole Sodium 40 mg STK-MED ONCE .ROUTE; Start 11/30/24 at 06:58; Stop 11/30/24 at 07:02; Status DC Pantoprazole Sodium 80 mg/ Sodium Chloride 100 ml @ 10 mls/hr Q10H IVP Last administered on 12/01/24at 08:36; Start 11/30/24 at 10:00; Stop 12/30/24 at 09:59 Sodium Chloride 1,000 ml @ 100 mls/hr Q10H IV Last administered on 11/30/24at 10:44; Start 11/30/24 at 10:00; Stop 12/30/24 at 09:59 Ceftriaxone Sodium 1 gm Q24H IVPB Last administered on 12/01/24at 08:36; Start 11/30/24 at 10:00; Stop 12/10/24 at 09:59 Insulin Human Regular INSULIN SLIDING SCAL... Q6H6 SQ; Start 11/30/24 at 12:00; Stop 12/30/24 at 11:59 Hydralazine HCl 10 mg Q6H PRN IV; Start 11/30/24 at 10:30; Stop 12/30/24 at 10:29 Gabapentin 300 mg DAILY PO Last administered on 12/01/24at 08:35; Start 12/01/24 at 09:00; Stop 12/31/24 at 08:59 Levothyroxine Sodium 75 mcg SYN PO Last administered on 12/01/24at 05:42; Start 12/01/24 at 06:30; Stop 12/31/24 at 06:29 Hydromorphone HCl 0.5 mg Q6H PRN IVP Last administered on 12/01/24at 05:43; Start 11/30/24 at 14:30; Stop 12/05/24 at 14:29 Dexamethasone Sodium Phosphate 4 mg Q6H IV; Start 12/01/24 at 13:30; Stop 12/31/24 at 13:29 JOS WORLEY Jr. December 01, 2024 14:06
[2024-12-01] MEDS: dexaMETHasone SOD PHOSPHATE 4 MG/ML 1ML VIAL IV SCH (14:45)
--- NOTE | 2024-12-01 18:02 | NUR ---
D/C PLAN CM spoke to patient regarding d/c planning. Patient lives alone with handicapped sonJuan Daniels having any home services. States she has a rollator walker. Sisters assist with transportation to MD appointments. Plan to home. No needs verbalized. CM to f/u. Addendum: 12/01/24 at 1803 by LELAND MCCRAY CM Amended: Links added.
[2024-12-01] MEDS: INSULIN humuLIN R 100 UNIT/ML 3ML SQ SCH (20:19)
[2024-12-02] VITALS (9 sets, daily range): BP systolic 126–151; BP diastolic 52–78; PULSE 62–97; RESP 17–20; TEMP 97.4–98.7; O2SAT 95–99
[2024-12-02 04:36] LABS: BASOPHILS # (AUTO) 0.01 K/uL (0.00-0.20); BASOPHILS % (AUTO) 0.1 % (0.0-5.0); HEMATOCRIT 34.6 % (36-48); IMMATURE GRANULOCYTE ABSOLUTE 0.04 K/uL (0-1); LYMPHOCYTES # (AUTO) 0.7 K/uL (1.0-4.8); LYMPHOCYTES % (AUTO) 10.5 % (21.0-51.0); MEAN CORPUSCULAR HEMOGLOBIN 30.4 pg (27.0-33.0); MEAN CORPUSCULAR HGB CONC 32.7 g/dL (32.0-36.0); MONOCYTES # (AUTO) 0.1 K/uL (0.1-1.0); MONOCYTES % (AUTO) 2.1 % (3.0-13.0); NEUTROPHILS # (AUTO) 5.8 K/uL (1.8-7.7); NEUTROPHILS % (AUTO) 86.7 % (40.0-77.0); PLATELET COUNT (AUTO) 397 K/uL (130-400); RED BLOOD CELL COUNT(AUTO) 3.72 MIL/uL (4.00-5.50); WHITE BLOOD COUNT (AUTO) 6.7 K/uL (4.8-10.8)
[2024-12-02 05:15] LABS: ALBUMIN 2.6 g/dL (3.5-5.0); BILIRUBIN,TOTAL 0.4 mg/dL (0.2-1.0); CREATININE 1.2 mg/dL (0.5-1.0); POTASSIUM 4.6 mmol/L (3.5-5.1); TOTAL PROTEIN, SERUM 6.4 g/dL (6.0-8.3)
--- NOTE | 2024-12-02 08:22 | CONS ---
GASTROENTEROLOGY CONSULTATION NOTE Date of Consultation: December 02, 2024 Time of Consultation: 08:21 History of Present Illness: [ ] Review of Systems: CONSTITUTIONAL: No malaise or change in sensation of wellbeing. ENMT: No rhinorrhea, otorrhea, sinus pain, ear ache. CARDIOVASCULAR: No angina, palpitations, orthopnea or paroxysmal dyspnea. RESPIRATORY: No SOB. GASTROINTESTINAL: No abdominal pain, nausea, vomiting, diarrhea, hematemesis, melena or change in the patient's habitual bowel movements consistency/number. GENITOURINARY: No dysuria, hematuria or change in bladder continence. MUSCULOSKELETAL: No new muscle pain or decrease in muscular strength. No new joint swelling, redness or tenderness. SKIN: No new rash. Past Medical History: [ ] Past Surgical History: [ ] Past Social History: [ ] Family History: [ ] Coded Allergies: No Known Drug Allergies (Verified Allergy, 07/30/13) Physical Exam: GEN: Awake, alert, oriented in person, time and place, and in no acute distress. HEENT: No sinus tenderness. Tympanic membranes were not examined. No rhinorrhea. Oral pharyngeal mucosa is pink, moist and within normal limits. Neck is supple with no cervical lymphadenopathy, thyromegaly or JVD. CHEST: Inspection, palpation and percussion of the chest were unremarkable. Lung auscultation revealed normal breath sounds bilaterally. CARDIAC: PMI is within normal limits. Heart sounds are regular. Normal S1, S2. No gallop or murmur. ABD: Soft, non-tender and not distended. No peritoneal signs on palpation. No organomegaly. Normal bowel sounds. EXT: No cyanosis or clubbing. No edema. SKIN: Intact. No rashes. JOINTS: No evidence of synovitis or acute arthritis. NEURO: Alert and oriented to name, place and person. Cranial nerve examination is unremarkable. No focal motor deficits. Normal speech. Gait is normal. Strength is normal. Vital Sign (Last 24 Hours) 12/01/24 12/02/24 20:00 04:00 Temp 98.6 Pulse 86 Resp 18 B/P (MAP) 151/66 Pulse Ox 96 O2 Delivery Room Air O2 Flow Rate 0 FiO2 21 Intake & Output (last 24hrs) 12/01/24 12/01/24 12/02/24 15:00 23:00 07:00 Intake Total 995 ml 240 ml Output Total 650 ml Balance 995 ml -410 ml Laboratory: [ ] Laboratory: Test 12/02/24 05:27 12/02/24 04:22 11/30/24 10:06 Range/Units Whole Blood Glucose 157 H 70-110 MG/DL White Blood Count 6.7 # 4.8-10.8 K/uL Red Blood Count 3.72 L 4.00-5.50 MIL/uL Hemoglobin 11.3 L 12.0-16.0 g/dL Hematocrit 34.6 L 36-48 % Mean Corpuscular Volume 93.0 79-99 fL Mean Corpuscular Hemoglobin 30.4 27.0-33.0 pg Mean Corpuscular Hemoglobin Concent 32.7 32.0-36.0 g/dL Red Cell Distribution Width 13.0 11.0-15.5 % Platelet Count 397 130-400 K/uL Mean Platelet Volume 9.4 7.5-10.5 fL Immature Granulocyte % (Auto) 0.6 0-1 % Neutrophils (%) (Auto) 86.7 H 40.0-77.0 % Lymphocytes (%) (Auto) 10.5 L 21.0-51.0 % Monocytes (%) (Auto) 2.1 L 3.0-13.0 % Eosinophils (%) (Auto) 0.0 0.0-8.0 % Basophils (%) (Auto) 0.1 0.0-5.0 % Neutrophils # (Auto) 5.8 1.8-7.7 K/uL Lymphocytes # (Auto) 0.7 L 1.0-4.8 K/uL Monocytes # (Auto) 0.1 0.1-1.0 K/uL Eosinophils # (Auto) 0.00 0.00-0.70 K/uL Basophils # (Auto) 0.01 0.00-0.20 K/uL Absolute Immature Granulocyte (auto 0.04 0-1 K/uL Nucleated Red Blood Cells 0.0 0.0-0.19 % Sodium Level 137 136-145 mmol/L Potassium Level 4.6 3.5-5.1 mmol/L Chloride Level 102 101-111 mmol/L Carbon Dioxide Level 26 21-32 mmol/L Blood Urea Nitrogen 26 H 7-18 mg/dL Creatinine 1.2 H 0.5-1.0 mg/dL Glomerular Filtration Rate Calc 48 >90 mL/min Random Glucose 171 #H 70-105 mg/dL Total Calcium 8.6 8.5-10.1 mg/dL Magnesium Level 2.00 1.80-2.40 mg/dL Total Bilirubin 0.4 0.2-1.0 mg/dL Aspartate Amino Transf (AST/SGOT) 14 10-37 U/L Alanine Aminotransferase (ALT/SGPT) 15 12-78 U/L Alkaline Phosphatase 148 H 50-136 U/L Total Protein 6.4 6.0-8.3 g/dL Albumin 2.6 L 3.5-5.0 g/dL Hemoglobin A1c 6.9 H 4.0-6.0 % Estimated Average Glucose (eAG) 151 H 70-126 mg/dL Troponin I High Sensitivity 20 4-50 ng/L C-Reactive Protein, Quantitative 103.40 H 0.5-3.0 mg/L Lipase 28 16-77 U/L Procalcitonin 0.10 0.05-0.5 ng/mL Thyroid Stimulating Hormone (TSH) 3.63 0.36-3.74 uIU/mL Current Medications Medications (Trade) Dose Ordered Sig/Masood Route PRN Reason Start Time Stop Time Status Last Admin Dose Admin Ceftriaxone Sodium (ROCEphine 1G INJ) 1 gm Q24H IVPB 11/30/24 10:00 12/10/24 09:59 12/01/24 08:36 1 GM Dexamethasone Sodium Phosphate (dexaMETHasone 4MG/ML 1ML VIAL) 4 mg Q6H IV 12/01/24 13:30 12/31/24 13:29 12/02/24 08:12 4 MG Gabapentin (NEURontin 300 MG CAP) 300 mg DAILY PO 12/01/24 09:00 12/31/24 08:59 12/01/24 08:35 300 MG Hydralazine HCl (APRESOLine 20MG INJ) 10 mg Q6H PRN IV ADMINISTER FOR SBP > 180 11/30/24 10:30 12/30/24 10:29 Hydromorphone HCl (DiLAUDid 0.5MG INJ) 0.5 mg Q6H PRN IVP SEVERE PAIN (7-10) 11/30/24 14:30 12/05/24 14:29 12/01/24 15:54 0.5 MG Insulin Human Regular (humuLIN R 100 UNIT/ML 3ML) INSULIN SLIDING SCAL... ACHS SQ 12/01/24 21:00 12/30/24 11:59 12/01/24 20:19 5 UNIT Insulin Human Regular (humuLIN R 100 UNIT/ML 3ML) INSULIN SLIDING SCAL... Q6H6 SQ 11/30/24 12:00 12/01/24 19:55 DC Levothyroxine Sodium (SYNTHroid 75MCG TAB) 75 mcg SYN PO 12/01/24 06:30 12/31/24 06:29 12/01/24 05:42 75 MCG Ondansetron HCl (zoFRAN 4MG INJ) 4 mg Q6H PRN IVP NAUSEA/VOMITING 11/30/24 07:00 12/30/24 06:59 11/30/24 07:00 4 MG Pantoprazole Sodium (PROTonix 40MG INJ) 40 mg BID IVP 11/30/24 09:00 11/30/24 12:17 DC 11/30/24 07:00 40 MG Pantoprazole Sodium 80 mg/ Sodium Chloride 100 ml @ 10 mls/hr Q10H IVP 11/30/24 10:00 12/30/24 09:59 12/02/24 04:23 10 MLS/HR Sodium Chloride 1,000 ml @ 100 mls/hr Q10H IV 11/30/24 10:00 12/30/24 09:59 12/02/24 04:24 100 MLS/HR Diagnostics / Radiology: [COPY/PASTE HERE IF NO REPORTS PLEASE DELETE SECTION] Assessment: [ ] Plan: [ ] DAMIEN OLIVEIRA [employer] December 02, 2024 08:21
--- NOTE | 2024-12-02 10:00 | HMCIMG ---
Exam Type: MRI OF THE LUMBAR SPINE WITHOUT GADOLINIUM Clinical Information: BILATERAL LOWER LEG PAIN Comparison: None Technique: Sagittal T1 and T2 FSE, Sagittal STIR and Sagittal proton density images were completed through the lumbosacral spine. Axial T1, T2 and proton density images were also acquired. FINDINGS: Vertebral body height and disc height is preserved at all levels. The bone marrow signal is normal for age. The spinal canal contents are preserved. The conus terminates at a normal level at T12 to L2. The paraspinal muscles and other tissues show no significant abnormalities. No disc bulges or herniations are identified. Evaluation of the lumbar spine by level: T12-L1: There is no spinal canal stenosis. No disc herniation or bulge is noted. There is no neural foraminal stenosis, impingement, or narrowing. L1-L2: There is no spinal canal stenosis. No disc herniation or bulge is noted. There is no neural foraminal stenosis, impingement, or narrowing. L2-L3: There is no spinal canal stenosis. No disc herniation or bulge is noted. There is no neural foraminal stenosis, impingement, or narrowing. L3-L4: There is no spinal canal stenosis. No disc herniation or bulge is noted. There is no neural foraminal stenosis, impingement, or narrowing. L4-L5: There is no spinal canal stenosis. No disc herniation or bulge is noted. There is no neural foraminal stenosis, impingement, or narrowing. L5-S1: There is bilateral spondylolysis at L5 with grade 1 anterolisthesis of L5 over S1. This is chronic. There is neural foramina narrowing bilaterally, with bilateral mild nerve root impingement. 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
[2024-12-02] MEDS ORDERED: DIATR MEGLU/DIATRIZOATE SODIUM 30 ML BOTTLE ONE (12:00)
--- NOTE | 2024-12-02 13:25 | HMCIMG ---
Limited upper GI series and small bowel follow-through History: R/O BOWEL OBSTRUCTION Comparison: none TECHNIQUE: EXAMINATION IS DONE UNDER RADIOGRAPHIC CONTROL. FINDINGS: Upper GI examination is limited, with significant delay in emptying of the distal esophagus. However, eventually there is passage into a distended stomach. The duodenal appears unremarkable. The small bowel examination examination is unremarkable. There is no evidence of inflammatory disease to suggest ulcer. The duodenal bulb and sweep are unremarkable. There is no evidence of malrotation. The ligament of Treitz is in its expected location. The entire small bowel appears unremarkable. No obstruction is seen. No intraluminal lesions are noted. There is no dilatation of lumen. The terminal ileum is at its usual location, and there is adequate emptying into the proximal colon. IMPRESSION: Delay emptying of the esophagus. Dilated stomach. No evidence of small bowel obstruction.
--- NOTE | 2024-12-02 15:25 | NUR ---
NOTIFIED BY PHOTOGRAPHER HR AT 120s. PT IS IN BED RESTING COMFORTABLE IN NO APPARENT DISTRESS. RESIDENT KELLY AWARE OF HR.
--- NOTE | 2024-12-02 15:40 | PN ---
[facility] PROGRESS NOTE Date of Service: December 02, 2024 Time of Service: 15:29 SUBJECTIVE: 74-year-old female with past medical history of hypertension, hypothyroidism, diabetes mellitus type who presented to the hospital secondary to nausea and vomiting. Patient states pain she noted that she had vomiting which was dark colored. Daughter noted that patient had some saliva and she has been having episodes of burping at home. She reports pain in the midsternal/epigastric area she describes as noted. She denied any upper extremity pain, paresthesias. She denied any fever, chills, shortness of breath, cough. Denied any diarrhea. She has not had a bowel movement since yesterday but has been passing flatus. She was recently seen in [facility] secondary to lower back pain which was radiating towards her leg. She had a arterial Doppler which showed atherosclerotic disease, venous Doppler which was negative for lower extremity DVT. She followed up with her primary care provider and was diagnosed with sciatica. She is being worked up for sciatica and we will be having a MRI of her lower back in the future. Secondary to the pain she has been mostly in bed. She had a lower extremity massage done and noted some bruising. She currently denies taking any antiplatelet or anticoagulant. She is able to swallow her saliva and was able to tolerate pudding yesterday. She has been taking steroids at home and denies using any NSAID therapy at home for her back pain. Secondary to non improving symptoms, patient thereafter came to the hospital for further evaluation. Labs in the ED were notable for white count of 12.6, hemoglobin was 13.6, platelet count was 454 K, sodium was 134, potassium was 4.4, creatinine is 1.4, glucose is 235, alk-phos was mildly elevated, T bili was normal, AST and ALT were also normal. The patient underwent a CT abdomen pelvis. She had mild small dilation. She was noted to have gastric distention, gallstones and distended gallbladder. 12/01/24 patient was seen and examined. Case discussed with the RN and family by the bedside. Patient denies any GI complaints but is more concerned about lower extremity pain /started on Decadron and an MRI of the lumbar spinal be ordered. 12/02/24 patient was seen and evaluated today. She is complaining of burning while eating or drinking status post colonoscopy. She is complaining of low back pain. MRI of lumbar spine showed bilateral chronic spondylolysis at L5 with grade 1 anterolisthesis of L5 over S1 and bilateral mild nerve root impingement. Consult PT for eval and treat. We will consult tele neuro. Kidney functions are improving with BUN 26 and creatinine 1.2 REVIEW OF SYSTEMS CONSTITUTIONAL: Denies fevers, chills, or night sweats. No unintentional weight loss reported. NEUROLOGICAL: Denies headache, amaurosis fugax, motor weakness, sensory de ficit, vertigo/spinning sensation, gait abnormalities, or tremors. ENT: No hearing loss, otalgia, otorrhea, rhinitis, rhinorrhea, hoarseness, or sore throat. CARDIOVASCULAR: Denies any exertional angina, dyspnea on exertion, orthopnea, paroxysmal nocturnal dyspnea, palpitations, life-threatening arrhythmias, claudication. PULMONARY: Denies any shortness of breath, cough, phlegm/sputum, hemoptysis, pleuritic chest pain. GASTROINTESTINAL: Positive Abdominal pain, nausea, vomiting. Denied any melena, hematochezia, diarrhea. GENITOURINARY: Denies frequency, urgency, nocturia, hematuria or incontinence (Storage/Irritative symptoms.) Low urinary stream, straining to void, urinary intermittency or hesitancy, splitting of the voiding stream, terminal dribbling. ENDOCRINOLOGIC: Denies polyuria, polydipsia, polyphagia or heat/cold intolerances. HEMATOLOGIC: Denies thrombophilia/previous clots, or coagulopathy/bleeding disorders. ONCOLOGIC: Denies personal history of malignancy. DERMATOLOGIC: Denies rashes or pruritus. PSYCHIATRIC: Denies any suicidal or homicidal ideation. Denies hallucinations. PHYSICAL EXAM GENERAL APPEARANCE: The patient is awake, alert, and oriented, in no acute cardiopulmonary distress. NEUROLOGICAL: Cranial nerves II-XII grossly intact. Motor is 5/5 in bilateral upper and lower extremities proximal to distal. No sensory deficits. HEENT: Face is symmetric. Pupils are equal and reactive. Extraocular movements are intact. NECK: Supple. No JVD. No thyromegaly. No submental, submandibular, pre- /postauricular, occipital or supraclavicular lymphadenopathy. CHEST: Normal chest expansion. No Telemetry. LUNGS: Absence of any rales, rhonchi or any wheezing. CARDIOVASCULAR: Regular. S1 and S2 normal. No appreciable rubs, murmurs or gallops. ABDOMEN: Soft, nontender, and nondistended. There is no rebound, voluntary guarding, or rigidity. : Deferred. No Dunbar. EXTREMITIES: Patient has bruising noted in the right lower extremity. She is able to move her knee and hip without issues SKIN: No skin breakdown. Vital Signs (last 8hr) Date Time Temp Pulse Resp B/P (MAP) Pulse Ox O2 Delivery O2 Flow Rate FiO2 12/02/24 13:00 98.4 97 19 138/78 94 Room Air 21 12/02/24 08:15 99 Room Air* 0 21 12/02/24 08:00 97.3 62 20 143/70 99 Room Air LABS: Laboratory: Test 12/02/24 05:27 12/02/24 04:22 Range/Units Whole Blood Glucose 157 H 70-110 MG/DL White Blood Count 6.7 # 4.8-10.8 K/uL Red Blood Count 3.72 L 4.00-5.50 MIL/uL Hemoglobin 11.3 L 12.0-16.0 g/dL Hematocrit 34.6 L 36-48 % Mean Corpuscular Volume 93.0 79-99 fL Mean Corpuscular Hemoglobin 30.4 27.0-33.0 pg Mean Corpuscular Hemoglobin Concent 32.7 32.0-36.0 g/dL Red Cell Distribution Width 13.0 11.0-15.5 % Platelet Count 397 130-400 K/uL Mean Platelet Volume 9.4 7.5-10.5 fL Immature Granulocyte % (Auto) 0.6 0-1 % Neutrophils (%) (Auto) 86.7 H 40.0-77.0 % Lymphocytes (%) (Auto) 10.5 L 21.0-51.0 % Monocytes (%) (Auto) 2.1 L 3.0-13.0 % Eosinophils (%) (Auto) 0.0 0.0-8.0 % Basophils (%) (Auto) 0.1 0.0-5.0 % Neutrophils # (Auto) 5.8 1.8-7.7 K/uL Lymphocytes # (Auto) 0.7 L 1.0-4.8 K/uL Monocytes # (Auto) 0.1 0.1-1.0 K/uL Eosinophils # (Auto) 0.00 0.00-0.70 K/uL Basophils # (Auto) 0.01 0.00-0.20 K/uL Absolute Immature Granulocyte (auto 0.04 0-1 K/uL Nucleated Red Blood Cells 0.0 0.0-0.19 % Sodium Level 137 136-145 mmol/L Potassium Level 4.6 3.5-5.1 mmol/L Chloride Level 102 101-111 mmol/L Carbon Dioxide Level 26 21-32 mmol/L Blood Urea Nitrogen 26 H 7-18 mg/dL Creatinine 1.2 H 0.5-1.0 mg/dL Glomerular Filtration Rate Calc 48 >90 mL/min Random Glucose 171 #H 70-105 mg/dL Total Calcium 8.6 8.5-10.1 mg/dL Magnesium Level 2.00 1.80-2.40 mg/dL Total Bilirubin 0.4 0.2-1.0 mg/dL Aspartate Amino Transf (AST/SGOT) 14 10-37 U/L Alanine Aminotransferase (ALT/SGPT) 15 12-78 U/L Alkaline Phosphatase 148 H 50-136 U/L Total Protein 6.4 6.0-8.3 g/dL Albumin 2.6 L 3.5-5.0 g/dL Current Medications Medications (Trade) Dose Ordered Sig/Masood Route PRN Reason Start Time Stop Time Status Last Admin Dose Admin Ceftriaxone Sodium (ROCEphine 1G INJ) 1 gm Q24H IVPB 11/30/24 10:00 12/10/24 09:59 12/02/24 13:47 1 GM Dexamethasone Sodium Phosphate (dexaMETHasone 4MG/ML 1ML VIAL) 4 mg Q6H IV 12/01/24 13:30 12/31/24 13:29 12/02/24 13:48 4 MG Gabapentin (NEURontin 300 MG CAP) 300 mg DAILY PO 12/01/24 09:00 12/31/24 08:59 12/01/24 08:35 300 MG Hydralazine HCl (APRESOLine 20MG INJ) 10 mg Q6H PRN IV ADMINISTER FOR SBP > 180 11/30/24 10:30 12/30/24 10:29 Hydromorphone HCl (DiLAUDid 0.5MG INJ) 0.5 mg Q6H PRN IVP SEVERE PAIN (7-10) 11/30/24 14:30 12/05/24 14:29 5/4/25 15:54 0.5 MG Insulin Human Regular (humuLIN R 100 UNIT/ML 3ML) INSULIN SLIDING SCAL... ACHS SQ 12/01/24 21:00 12/30/24 11:59 12/01/24 20:19 5 UNIT Insulin Human Regular (humuLIN R 100 UNIT/ML 3ML) INSULIN SLIDING SCAL... Q6H6 SQ 11/30/24 12:00 12/01/24 19:55 DC Levothyroxine Sodium (SYNTHroid 75MCG TAB) 75 mcg SYN PO 12/01/24 06:30 12/31/24 06:29 12/01/24 05:42 75 MCG Ondansetron HCl (zoFRAN 4MG INJ) 4 mg Q6H PRN IVP NAUSEA/VOMITING 11/30/24 07:00 12/30/24 06:59 11/30/24 07:00 4 MG Pantoprazole Sodium (PROTonix 40MG INJ) 40 mg BID IVP 11/30/24 09:00 11/30/24 12:17 DC 11/30/24 07:00 40 MG Pantoprazole Sodium 80 mg/ Sodium Chloride 100 ml @ 10 mls/hr Q10H IVP 11/30/24 10:00 12/30/24 09:59 12/02/24 04:23 10 MLS/HR Sodium Chloride 1,000 ml @ 100 mls/hr Q10H IV 11/30/24 10:00 12/30/24 09:59 12/02/24 04:24 100 MLS/HR DIAGNOSTICS / RADIOLOGY: [place] [address] IMAGING REPORT Signed PATIENT: JESIKA CURTIS MR#: [id number] : 1950 SEX: F AGE: 74 LOCATION: 4BH ORDER [id number] STATUS: ADM IN REPORT#: [id number] SERVICE 1241 REASON: BILATERAL LOWER LEG PAIN ORDERING PHYSICIAN: LAURIE MORENO MD PROCEDURE: L SPN WO - MR SPINAL CANAL, LUMBAR WO CON Exam Type: MRI OF THE LUMBAR SPINE WITHOUT GADOLINIUM Clinical Information: BILATERAL LOWER LEG PAIN Comparison: None Technique: Sagittal T1 and T2 FSE, Sagittal STIR and Sagittal proton density images were completed through the lumbosacral spine. Axial T1, T2 and proton density images were also acquired. FINDINGS: Vertebral body height and disc height is preserved at all levels. The bone marrow signal is normal for age. The spinal canal contents are preserved. The conus terminates at a normal level at T12 to L2. The paraspinal muscles and other tissues show no significant abnormalities. No disc bulges or herniations are identified. Evaluation of the lumbar spine by level: T12-L1: There is no spinal canal stenosis. No disc herniation or bulge is noted. There is no neural foraminal stenosis, impingement, or narrowing. L1-L2: There is no spinal canal stenosis. No disc herniation or bulge is noted. There is no neural foraminal stenosis, impingement, or narrowing. L2-L3: There is no spinal canal stenosis. No disc herniation or bulge is noted. There is no neural foraminal stenosis, impingement, or narrowing. L3-L4: There is no spinal canal stenosis. No disc herniation or bulge is noted. There is no neural foraminal stenosis, impingement, or narrowing. L4-L5: There is no spinal canal stenosis. No disc herniation or bulge is noted. There is no neural foraminal stenosis, impingement, or narrowing. L5-S1: There is bilateral spondylolysis at L5 with grade 1 anterolisthesis of L5 over S1. This is chronic. There is neural foramina narrowing bilaterally, with bilateral mild nerve root impingement. 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 DICTATED BY: NAM ROWLEY MD DATE: 12/02/24 0956 ELECTRONICALLY SIGNED BY: NAM ROWLEY MD DATE: 12/02/24 [address] [place] [id number] [id number] IMAGING REPORT Signed PATIENT: JESIKA CURTIS MR#: [id number] : 1950 SEX: F AGE: 74 LOCATION: 4BH ORDER 1025 STATUS: ADM IN REPORT#: [id number] SERVICE 1017 REASON: R/O BOWEL OBSTRUCTION ORDERING PHYSICIAN: SADIE OLSEN MD PROCEDURE: UGISBFT - UPPER GI W/SMALL BOWEL Limited upper GI series and small bowel follow-through History: R/O BOWEL OBSTRUCTION Comparison: none TECHNIQUE: EXAMINATION IS DONE UNDER RADIOGRAPHIC CONTROL. FINDINGS: Upper GI examination is limited, with significant delay in emptying of the distal esophagus. However, eventually there is passage into a distended stomach. The duodenal appears unremarkable. The small bowel examination examination is unremarkable. There is no evidence of inflammatory disease to suggest ulcer. The duodenal bulb and sweep are unremarkable. There is no evidence of malrotation. The ligament of Treitz is in its expected location. The entire small bowel appears unremarkable. No obstruction is seen. No intraluminal lesions are noted. There is no dilatation of lumen. The terminal ileum is at its usual location, and there is adequate emptying into the proximal colon. IMPRESSION: Delay emptying of the esophagus. Dilated stomach. No evidence of small bowel obstruction. DICTATED BY: NAM ROWLEY MD DATE: 12/02/24 1318 ELECTRONICALLY SIGNED BY: NAM ROWLEY MD DATE: 12/02/24 1325 [place] [address] IMAGING REPORT Signed PATIENT: JESIKA CURTIS MR#: [id number] : 1950 SEX: F AGE: 74 LOCATION: H ORDER 170 STATUS: ADM IN REPORT#: [id number] SERVICE 1701 REASON: rule cholecystitis ORDERING PHYSICIAN: JOS WORLEY Jr. PROCEDURE: HIDA PHARM - NM HIDA/HEPATOBILI W/ PHARMACO NM HIDA/HEPATOBILI W/ PHARMACO REASON: rule cholecystitis. COMPARISON: None TECHNIQUE: Hepatobiliary imaging study was performed with 6.5 mCi of technetium Choletec through intravenous route. FINDINGS: Normal visualization of gallbladder and bowel activity noted within 1 hour. IMPRESSION: Normal hepatobiliary imaging study. DICTATED BY: CHINA ÁLVAREZ MD DATE: 11/30/242216 ELECTRONICALLY SIGNED BY: CHINA LÁVAREZ MD DATE: 11/30/242 [facility] [address] [place] [id number] IMAGING REPORT Signed PATIENT: JESIKA CURTIS MR#: [id number] : 1950 SEX: F AGE: 74 LOCATION: 4BH ORDER 1002 STATUS: ADM IN REPORT#: [id number] SERVICE 1001 REASON: distended gall bladder ORDERING PHYSICIAN: GISSELLE ESTRADA MD PROCEDURE: ABDRUQLTD - US ABDOMINAL RUQ\LTD US ABDOMINAL RUQ\E\LTD HISTORY: Distended gallbladder COMPARISON: None TECHNIQUE: Right upper quadrant abdominal ultrasound study was performed. FINDINGS: Liver measures 13 cm. Pancreas not well-seen due to overlying bowel gas. Liver is echogenic consistent with liver parenchymal disease. Gallbladder is contracted with gallstones. Common duct measures 6 mm. Gallbladder wall measures 3 mm. Right kidney is not well visualized limiting evaluation. IMPRESSION: 1. Gallstones in the contracted gallbladder. 2. Right kidney is not visualized. DICTATED BY: CHINA ÁLVAREZ MD DATE: 11/30/24 1340 ELECTRONICALLY SIGNED BY: CHINA ÁLVAREZ MD DATE: 11/30/24 1357 [facility] [address] [place] [id number] IMAGING REPORT Signed PATIENT: JESIKA CURTIS MR#: [id number] : 1950 SEX: F AGE: 74 LOCATION: EDH ORDER 0830 STATUS: REG ER REPORT#: [id number] SERVICE 0829 REASON: hematamesis ORDERING PHYSICIAN: JORDY SANDOVAL MD PROCEDURE: ABD PEL WO - CT ABDOMEN/PELVIS W/O CONTRAST CT ABDOMEN/PELVIS W/O CONTRAST HISTORY: Hematemesis COMPARISON: None TECHNIQUE: Multiple sequential axial images of the abdomen and pelvis were obtained from the dome of the diaphragm through symphysis pubis. Patient was not given contrast through intravenous route. Oral contrast was not given. FINDINGS: No pleural effusion is seen bilaterally. There are mild interstitial fibrosis with bronchiectasis. Nonspecific pleural thickening is seen on the right. There is no evidence of parenchymal disease or pulmonary nodule of the visualized lower lungs. Grade 2 to grade 3 anterolisthesis is seen at the L5-S1 level with disc space narrowing and no foraminal stenosis. Bilateral L5 pars defects are seen. Degenerative changes of the thoracolumbar spine are present. The heart is not enlarged. Gallstones are seen in the distended gallbladder. There is gastric distention. Mild small bowel dilatation is seen. The liver, spleen, adrenal glands and pancreas are unremarkable. There is no evidence of hydronephrosis bilaterally. No evidence of renal stone is seen. Fecal material is seen in the colon. There are normal size retroperitoneal and mesenteric lymph nodes. No ascites is seen. Atherosclerotic changes are present. Uterus is enlarged suggestive of fibroid uterus. Destructive changes with fracture are seen involving the right inferior pubic ramus of indeterminate age. Pelvic sidewalls are symmetric bilaterally. Bladder is well distended without wall thickening. IMPRESSION: 1. Mild small bowel dilatation. Gallstones in the distended gallbladder. CT was performed with one or more following dose reduction techniques: automated exposure control, adjustment of the mA and kv according to patient's size, or use of a iterative reconstruction technique. DICTATED BY: CHINA ÁLVAREZ MD DATE: 11/30/24904 ELECTRONICALLY SIGNED BY: CHINA ÁLVAREZ MD DATE: 11/30/24909 ASSESSMENT: Coffee-ground emesis POA Gastric distention POA differential gastric outlet obstruction versus peptic ulcer disease versus gastroparesis from underlying diabetes Cholelithiasis Midsternal/epigastric abdominal pain differential POD versus secondary to symptomatic cholelithiasis versus ACS Lower back pain differential secondary to sciatica being worked as outpatient Mild leukocytosis differential reactive versus infection Hypertension Hypothyroidism Diabetes mellitus type 2 Debility PLAN: Continue to monitor the patient on medical surgical floor. Coffee-ground emesis POA GI consult appreciated and we will follow their recommendations. Patient underwent colonoscopy today and we will follow up with the results. Continue on Protonix drip. We will check H&H q.6 hours. We will occult blood is positive. Gastric distention POA differential gastric outlet obstruction versus peptic ulcer disease versus gastroparesis from underlying diabetes Midsternal/epigastric abdominal pain differential POD versus secondary to symptomatic cholelithiasis versus ACS Continue patient on IV fluids. General surgery consult appreciated and recommended no surgical intervention. Mild leukocytosis differential reactive versus infection WBC went down from 11.3-6.7. Continue on Rocephin. Blood culture negative. Cholelithiasis Right upper quadrant ultrasound showed gallstones in the contracted gallbladder. HIDA scan is unremarkable. CT abdomen and pelvis showed mild small bowel dilation. Gallstones in the distended gallbladder. Diabetes mellitus type 2 A1c 6.9% Glucose checks a.c. and HS. Follow insulin sliding scale. Hypoglycemia protocol Lower back pain differential secondary to sciatica being worked as outpatient Continue gabapentin 300 mg daily, dexamethasone 400 mg IV q.6 H. Protonix for GI prophylaxis. SCDs for DVT prophylaxis. ATTESTATION BY PHYSICIAN I have seen and examined the patient. I reviewed the documentation, medical decision making, and treatment plan as noted by the resident provider above. I agree with the findings and plan of care. Laurie Moreno MD, KRUPALI P MD December 02, 2024 15:40
[2024-12-02] MEDS: metoPROLOL tartRATE 1 MG/ML 5ML VIAL IV ONE (15:43)
--- NOTE | 2024-12-02 16:00 | NUR ---
NURSE NOTE CALL TELE MONITOR AND PT'S HR IS 86.
[2024-12-03] VITALS (28 sets, daily range): BP systolic 138–171; BP diastolic 48–85; PULSE 72–86; RESP 15–18; TEMP 97.6–98.5; O2SAT 95–96
[2024-12-03 05:59] LABS: BASOPHILS # (AUTO) 0.01 K/uL (0.00-0.20); BASOPHILS % (AUTO) 0.1 % (0.0-5.0); EOSINOPHILS # (AUTO) 0.01 K/uL (0.00-0.70); EOSINOPHILS % (AUTO) 0.1 % (0.0-8.0); HEMATOCRIT 34.6 % (36-48); IMMATURE GRANULOCYTE ABSOLUTE 0.04 K/uL (0-1); LYMPHOCYTES # (AUTO) 0.7 K/uL (1.0-4.8); LYMPHOCYTES % (AUTO) 7.6 % (21.0-51.0); MEAN CORPUSCULAR HEMOGLOBIN 30.6 pg (27.0-33.0); MEAN CORPUSCULAR HGB CONC 33.2 g/dL (32.0-36.0); MONOCYTES # (AUTO) 0.3 K/uL (0.1-1.0); MONOCYTES % (AUTO) 3.3 % (3.0-13.0); NEUTROPHILS # (AUTO) 8.5 K/uL (1.8-7.7); NEUTROPHILS % (AUTO) 88.5 % (40.0-77.0); PLATELET COUNT (AUTO) 417 K/uL (130-400); RED BLOOD CELL COUNT(AUTO) 3.76 MIL/uL (4.00-5.50); RED CELL DISTRIBUTION WIDTH 13.2 % (11.0-15.5); WHITE BLOOD COUNT (AUTO) 9.6 K/uL (4.8-10.8)
[2024-12-03 06:11] LABS: CREATININE 1.1 mg/dL (0.5-1.0); POTASSIUM 4.4 mmol/L (3.5-5.1)
[2024-12-03] MEDS ORDERED: proPOFol 10 MG/ML 20ML VIAL IV ONE (07:56)
--- NOTE | 2024-12-03 09:21 | NUR ---
PT TAKEN AT 0755 FOR EGD PROCEDURE
--- NOTE | 2024-12-03 10:40 | NUR ---
PT RETURNED FROM PROCEDURE, FULLY AWAKE AND STABLE. PT IN NO APPARENT DISTRESS. POST OP VITALS IN PLACE. NO O2, FAMILY AT BEDSIDE. DENIES ANY PAIN OR DISCOMFORT AT THIS TIME. BED LOW AND LOCKED. SIDE RAILS X3. CALL LIGHT WITHIN REACH
[2024-12-03] MEDS: PANTOPrazole 40 MG TAB DR PO SCH (12:13)
--- NOTE | 2024-12-03 15:51 | PN ---
[facility] PROGRESS NOTE Date of Service: December 03, 2024 Time of Service: 15:42 SUBJECTIVE: 74-year-old female with past medical history of hypertension, hypothyroidism, diabetes mellitus type who presented to the hospital secondary to nausea and vomiting. Patient states pain she noted that she had vomiting which was dark colored. Daughter noted that patient had some saliva and she has been having episodes of burping at home. She reports pain in the midsternal/epigastric area she describes as noted. She denied any upper extremity pain, paresthesias. She denied any fever, chills, shortness of breath, cough. Denied any diarrhea. She has not had a bowel movement since yesterday but has been passing flatus. She was recently seen in [facility] secondary to lower back pain which was radiating towards her leg. She had a arterial Doppler which showed atherosclerotic disease, venous Doppler which was negative for lower extremity DVT. She followed up with her primary care provider and was diagnosed with sciatica. She is being worked up for sciatica and we will be having a MRI of her lower back in the future. Secondary to the pain she has been mostly in bed. She had a lower extremity massage done and noted some bruising. She currently denies taking any antiplatelet or anticoagulant. She is able to swallow her saliva and was able to tolerate pudding yesterday. She has been taking steroids at home and denies using any NSAID therapy at home for her back pain. Secondary to non improving symptoms, patient thereafter came to the hospital for further evaluation. Labs in the ED were notable for white count of 12.6, hemoglobin was 13.6, platelet count was 454 K, sodium was 134, potassium was 4.4, creatinine is 1.4, glucose is 235, alk-phos was mildly elevated, T bili was normal, AST and ALT were also normal. The patient underwent a CT abdomen pelvis. She had mild small dilation. She was noted to have gastric distention, gallstones and distended gallbladder. 12/01/24 patient was seen and examined. Case discussed with the RN and family by the bedside. Patient denies any GI complaints but is more concerned about lower extremity pain /started on Decadron and an MRI of the lumbar spinal be ordered. 12/02/24 patient was seen and evaluated today. She is complaining of burning while eating or drinking status post colonoscopy. She is complaining of low back pain. MRI of lumbar spine showed bilateral chronic spondylolysis at L5 with grade 1 anterolisthesis of L5 over S1 and bilateral mild nerve root impingement. Consult PT for eval and treat. We will consult tele neuro. Kidney functions are improving with BUN 26 and creatinine 1.2. 12/03/24 patient was seen and examined today. Her daughter is at the bedside. She is reporting that her pain is better than yesterday. PT is working with her and she walked 10 steps with a walker. Her blood pressure has been in 150s. We will decrease the dose of dexamethasone to 2 mg q.6 H. we will give her1 dose of 10 mg hydralazine p.o. stool occult blood is positive. Patient underwent EGD today morning which showed small hiatal hernia, LA grade D reflux esophagitis with no bleeding and chronic gastritis. GI recommended Protonix 40 mg p.o. b.i.d.. Continue physical therapy today and we will see how she does. Creatinine went down from 1.2-1.1. REVIEW OF SYSTEMS CONSTITUTIONAL: Denies fevers, chills, or night sweats. No unintentional weight loss reported. NEUROLOGICAL: Denies headache, amaurosis fugax, motor weakness, sensory deficit, vertigo/spinning sensation, gait abnormalities, or tremors. ENT: No hearing loss, otalgia, otorrhea, rhinitis, rhinorrhea, hoarseness, or sore throat. CARDIOVASCULAR: Denies any exertional angina, dyspnea on exertion, orthopnea, paroxysmal nocturnal dyspnea, palpitations, life-threatening arrhythmias, claudication. PULMONARY: Denies any shortness of breath, cough, phlegm/sputum, hemoptysis, pleuritic chest pain. GASTROINTESTINAL: Positive Abdominal pain. Resolved nausea, vomiting. Denied any melena, hematochezia, diarrhea. GENITOURINARY: Denies frequency, urgency, nocturia, hematuria or incontinence (Storage/Irritative symptoms.) Low urinary stream, straining to void, urinary intermittency or hesitancy, splitting of the voiding stream, terminal dribbling. ENDOCRINOLOGIC: Denies polyuria, polydipsia, polyphagia or heat/cold intolerances. HEMATOLOGIC: Denies thrombophilia/previous clots, or coagulopathy/bleeding disorders. ONCOLOGIC: Denies personal history of malignancy. DERMATOLOGIC: Denies rashes or pruritus. PSYCHIATRIC: Denies any suicidal or homicidal ideation. Denies hallucinations. PHYSICAL EXAM GENERAL APPEARANCE: The patient is awake, alert, and oriented, in no acute cardiopulmonary distress. NEUROLOGICAL: Cranial nerves II-XII grossly intact. Motor is 5/5 in bilateral upper and lower extremities proximal to distal. No sensory deficits. HEENT: Face is symmetric. Pupils are equal and reactive. Extraocular movements are intact. NECK: Supple. No JVD. No thyromegaly. No submental, submandibular, pre- /postauricular, occipital or supraclavicular lymphadenopathy. CHEST: Normal chest expansion. No Telemetry. LUNGS: Absence of any rales, rhonchi or any wheezing. CARDIOVASCULAR: Regular. S1 and S2 normal. No appreciable rubs, murmurs or gallops. ABDOMEN: Soft, nontender, and nondistended. There is no rebound, voluntary guarding, or rigidity. : Deferred. No Dunbar. EXTREMITIES: Patient has bruising noted in the right lower extremity. She is able to move her knee and hip without issues SKIN: No skin breakdown. Vital Signs (last 8hr) Date Time Temp Pulse Resp B/P (MAP) Pulse Ox O2 Delivery O2 Flow Rate FiO2 12/03/24 12:00 98.1 81 18 162/82 95 Room Air 12/03/24 10:45 95 Room Air* 0 12/03/24 10:40 97.5 78 15 153/67 97 Room Air 12/03/24 10:35 97.5 80 15 159/68 97 Room Air 12/03/24 10:30 97.5 76 16 154/79 97 Room Air 12/03/24 10:25 97.5 82 16 160/75 94 Room Air 12/03/24 10:20 97.5 81 16 158/73 94 Room Air 12/03/24 10:15 97.5 79 16 153/74 94 Room Air 12/03/24 10:10 97.5 74 16 160/76 94 Room Air 12/03/24 10:05 97.5 80 16 157/85 94 Room Air 12/03/24 10:00 97.5 78 15 154/67 96 Nasal Cannula 2.0 24 12/03/24 09:55 97.5 74 15 149/70 96 Nasal Cannula 3.0 28 12/03/24 09:48 Mask 5/6/25 09:48 Mask 10.0 12/03/24 08:00 98.1 77 17 157/68 95 Room Air LABS: Laboratory: Test 12/03/24 15:15 12/03/24 05:34 12/02/24 15:02 12/02/24 04:22 Range/Units Whole Blood Glucose 206 H 70-110 MG/DL White Blood Count 9.6 4.8-10.8 K/uL Red Blood Count 3.76 L 4.00-5.50 MIL/uL Hemoglobin 11.5 L 12.0-16.0 g/dL Hematocrit 34.6 L 36-48 % Mean Corpuscular Volume 92.0 79-99 fL Mean Corpuscular Hemoglobin 30.6 27.0-33.0 pg Mean Corpuscular Hemoglobin Concent 33.2 32.0-36.0 g/dL Red Cell Distribution Width 13.2 11.0-15.5 % Platelet Count 417 H 130-400 K/uL Mean Platelet Volume 9.7 7.5-10.5 fL Immature Granulocyte % (Auto) 0.4 0-1 % Neutrophils (%) (Auto) 88.5 H 40.0-77.0 % Lymphocytes (%) (Auto) 7.6 L 21.0-51.0 % Monocytes (%) (Auto) 3.3 3.0-13.0 % Eosinophils (%) (Auto) 0.1 0.0-8.0 % Basophils (%) (Auto) 0.1 0.0-5.0 % Neutrophils # (Auto) 8.5 H 1.8-7.7 K/uL Lymphocytes # (Auto) 0.7 L 1.0-4.8 K/uL Monocytes # (Auto) 0.3 0.1-1.0 K/uL Eosinophils # (Auto) 0.01 0.00-0.70 K/uL Basophils # (Auto) 0.01 0.00-0.20 K/uL Absolute Immature Granulocyte (auto 0.04 0-1 K/uL Nucleated Red Blood Cells 0.0 0.0-0.19 % Sodium Level 137 136-145 mmol/L Potassium Level 4.4 3.5-5.1 mmol/L Chloride Level 102 101-111 mmol/L Carbon Dioxide Level 27 21-32 mmol/L Blood Urea Nitrogen 25 H 7-18 mg/dL Creatinine 1.1 H 0.5-1.0 mg/dL Glomerular Filtration Rate Calc 53 >90 mL/min Random Glucose 192 H 70-105 mg/dL Total Calcium 8.6 8.5-10.1 mg/dL Stool Occult Blood POSITIVE H NEGATIVE Magnesium Level 2.00 1.80-2.40 mg/dL Total Bilirubin 0.4 0.2-1.0 mg/dL Aspartate Amino Transf (AST/SGOT) 14 10-37 U/L Alanine Aminotransferase (ALT/SGPT) 15 12-78 U/L Alkaline Phosphatase 148 H 50-136 U/L Total Protein 6.4 6.0-8.3 g/dL Albumin 2.6 L 3.5-5.0 g/dL Current Medications Medications (Trade) Dose Ordered Sig/Masood Route PRN Reason Start Time Stop Time Status Last Admin Dose Admin Ceftriaxone Sodium (ROCEphine 1G INJ) 1 gm Q24H IVPB 11/30/24 10:00 12/10/24 09:59 12/03/24 10:51 1 GM Dexamethasone Sodium Phosphate (dexaMETHasone 4MG/ML 1ML VIAL) 2 mg Q6H IV 12/03/24 19:30 01/02/25 19:29 UNV Dexamethasone Sodium Phosphate (dexaMETHasone 4MG/ML 1ML VIAL) 4 mg Q6H IV 12/01/24 13:30 12/03/24 15:41 DC 12/03/24 13:46 4 MG Gabapentin (NEURontin 300 MG CAP) 300 mg DAILY PO 12/01/24 09:00 12/31/24 08:59 12/01/24 08:35 300 MG Hydralazine HCl (APRESOLine 20MG INJ) 10 mg Q6H PRN IV ADMINISTER FOR SBP > 180 11/30/24 10:30 12/30/24 10:29 Hydromorphone HCl (DiLAUDid 0.5MG INJ) 0.5 mg Q6H PRN IVP SEVERE PAIN (7-10) 11/30/24 14:30 12/05/24 14:29 12/02/24 16:00 0.5 MG Insulin Human Regular (humuLIN R 100 UNIT/ML 3ML) INSULIN SLIDING SCAL... ACHS SQ 12/01/24 21:00 12/30/24 11:59 12/02/24 20:08 5 UNIT Insulin Human Regular (humuLIN R 100 UNIT/ML 3ML) INSULIN SLIDING SCAL... Q6H6 SQ 11/30/24 12:00 12/01/24 19:55 DC Levothyroxine Sodium (SYNTHroid 75MCG TAB) 75 mcg SYN PO 12/01/24 06:30 12/31/24 06:29 12/01/24 05:42 75 MCG Ondansetron HCl (zoFRAN 4MG INJ) 4 mg Q6H PRN IVP NAUSEA/VOMITING 11/30/24 07:00 12/30/24 06:59 11/30/24 07:00 4 MG Pantoprazole Sodium (PROTonix 40MG INJ) 40 mg BID IVP 11/30/24 09:00 11/30/24 12:17 DC 11/30/24 07:00 40 MG Pantoprazole Sodium (PROTonix 40MG TAB) 40 mg BID PO 12/03/24 12:00 01/02/25 11:59 12/03/24 12:13 40 MG Pantoprazole Sodium 80 mg/ Sodium Chloride 100 ml @ 10 mls/hr Q10H IVP 11/30/24 10:00 12/03/24 11:49 DC 12/02/24 22:37 10 MLS/HR Sodium Chloride 1,000 ml @ 100 mls/hr Q10H IV 11/30/24 10:00 12/30/24 09:59 12/02/24 22:38 100 MLS/HR DIAGNOSTICS / RADIOLOGY: [place] [address] IMAGING REPORT Signed PATIENT: JESIKA CURTIS MR#: [id number] : 1950 SEX: F AGE: 74 LOCATION: [facility]BH ORDER [id number] STATUS: ADM IN REPORT#: [id number] SERVICE 1241 REASON: BILATERAL LOWER LEG PAIN ORDERING PHYSICIAN: LAURIE MORENO MD PROCEDURE: L SPN WO - MR SPINAL CANAL, LUMBAR WO CON Exam Type: MRI OF THE LUMBAR SPINE WITHOUT GADOLINIUM Clinical Information: BILATERAL LOWER LEG PAIN Comparison: None Technique: Sagittal T1 and T2 FSE, Sagittal STIR and Sagittal proton density images were completed through the lumbosacral spine. Axial T1, T2 and proton density images were also acquired. FINDINGS: Vertebral body height and disc height is preserved at all levels. The bone marrow signal is normal for age. The spinal canal contents are preserved. The conus terminates at a normal level at T12 to L2. The paraspinal muscles and other tissues show no significant abnormalities. No disc bulges or herniations are identified. Evaluation of the lumbar spine by level: T12-L1: There is no spinal canal stenosis. No disc herniation or bulge is noted. There is no neural foraminal stenosis, impingement, or narrowing. L1-L2: There is no spinal canal stenosis. No disc herniation or bulge is noted. There is no neural foraminal stenosis, impingement, or narrowing. L2-L3: There is no spinal canal stenosis. No disc herniation or bulge is noted. There is no neural foraminal stenosis, impingement, or narrowing. L3-L4: There is no spinal canal stenosis. No disc herniation or bulge is noted. There is no neural foraminal stenosis, impingement, or narrowing. L4-L5: There is no spinal canal stenosis. No disc herniation or bulge is noted. There is no neural foraminal stenosis, impingement, or narrowing. L5-S1: There is bilateral spondylolysis at L5 with grade 1 anterolisthesis of L5 over S1. This is chronic. There is neural foramina narrowing bilaterally, with bilateral mild nerve root impingement. 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 DICTATED BY: NAM ROWLEY MD DATE: 12/02/2456 ELECTRONICALLY SIGNED BY: NAM ROWLEY MD DATE: 12/03/[address] [address] IMAGING REPORT Signed PATIENT: JESIKA CURTIS MR#: [id number] : 1950 SEX: F AGE: 74 LOCATION: [facility] ORDER [id number] STATUS: ADM IN REPORT#: [id number] SERVICE 1017 REASON: R/O BOWEL OBSTRUCTION ORDERING PHYSICIAN: SADIE OLSEN MD PROCEDURE: UGISBFT - UPPER GI W/SMALL BOWEL Limited upper GI series and small bowel follow-through History: R/O BOWEL OBSTRUCTION Comparison: none TECHNIQUE: EXAMINATION IS DONE UNDER RADIOGRAPHIC CONTROL. FINDINGS: Upper GI examination is limited, with significant delay in emptying of the distal esophagus. However, eventually there is passage into a distended stomach. The duodenal appears unremarkable. The small bowel examination examination is unremarkable. There is no evidence of inflammatory disease to suggest ulcer. The duodenal bulb and sweep are unremarkable. There is no evidence of malrotation. The ligament of Treitz is in its expected location. The entire small bowel appears unremarkable. No obstruction is seen. No intraluminal lesions are noted. There is no dilatation of lumen. The terminal ileum is at its usual location, and there is adequate emptying into the proximal colon. IMPRESSION: Delay emptying of the esophagus. Dilated stomach. No evidence of small bowel obstruction. DICTATED BY: NAM ROWLEY MD DATE: 12/02/24 1318 ELECTRONICALLY SIGNED BY: NAM ROWLEY MD DATE: 12/03/24 0913 ASSESSMENT: Coffee-ground emesis POA Gastric distention POA differential gastric outlet obstruction versus peptic ulcer disease versus gastroparesis from underlying diabetes Cholelithiasis Midsternal/epigastric abdominal pain differential POD versus secondary to symptomatic cholelithiasis versus ACS Lower back pain differential secondary to sciatica being worked as outpatient Mild leukocytosis differential reactive versus infection Hypertension Hypothyroidism Diabetes mellitus type 2 Debility PLAN: Continue to monitor the patient on medical surgical floor. Coffee-ground emesis POA GI consult appreciated and we will follow their recommendations. Stool occult blood is positive. Patient had upper GI and small bowel x-ray yesterday which showed delayed emptying of the esophagus and dilated stomach. No evidence of SBO. Patient had EGD today morning which showed small hiatal hernia, LA grade D reflux esophagitis with no bleeding and chronic gastritis. Started on Protonix 40 mg p.o. b.i.d. Discontinue Protonix drip. We will check H&H q.6 hours. Gastric distention POA differential gastric outlet obstruction versus peptic ulcer disease versus gastroparesis from underlying diabetes Midsternal/epigastric abdominal pain differential POD versus secondary to symptomatic cholelithiasis versus ACS Continue patient on IV fluids. General surgery consult appreciated and recommended no surgical intervention. Mild leukocytosis differential reactive versus infection WBC within normal range Continue on Rocephin. Blood culture negative. Cholelithiasis Right upper quadrant ultrasound showed gallstones in the contracted gallbladder. HIDA scan is unremarkable. CT abdomen and pelvis showed mild small bowel dilation. Gallstones in the distended gallbladder. General surgery consult appreciated and no plans for surgical interventions. Hypertension Her blood pressure has been in 150s 160s. We will decrease the dose of dexamethasone. Patient does not take anything for hypertension at home We will give her 1 dose of 10 mg p.o. hydralazine1 time dose. We will monitor her blood pressure today and depending on that we will start her on antihypertensive drugs tomorrow. Diabetes mellitus type 2 A1c 6.9% on admission Glucose checks a.c. and HS. Follow insulin sliding scale. Hypoglycemia protocol Lower back pain differential secondary to sciatica being worked as outpatient Continue gabapentin 300 mg daily. We will change the dose of dexamethasone from 4 mg to 2 mg q.6 H. Continue physical therapy and depending on that we will plan for discharge. Protonix for GI prophylaxis. SCDs for DVT prophylaxis. ATTESTATION BY PHYSICIAN I have seen and examined the patient. I reviewed the documentation, medical decision making, and treatment plan as noted by the resident provider above. I agree with the findings and plan of care. Laurie Moreno MD, KRUPALI P MD December 03, 2024 15:50
[2024-12-03] MEDS: hydrALAZine HCL 10 MG TABLET PO ONE (16:19)
[2024-12-03] MEDS: dexaMETHasone SOD PHOSPHATE 4 MG/ML 1ML VIAL IV SCH (20:41)
[2024-12-04 03:50] VITALS: BP 159/70; PULSE 77; RESP 18; TEMP 98.1
[2024-12-04 04:48] LABS: BASOPHILS # (AUTO) 0.01 K/uL (0.00-0.20); BASOPHILS % (AUTO) 0.1 % (0.0-5.0); EOSINOPHILS # (AUTO) 0.02 K/uL (0.00-0.70); EOSINOPHILS % (AUTO) 0.2 % (0.0-8.0); HEMATOCRIT 35.9 % (36-48); IMMATURE GRANULOCYTE ABSOLUTE 0.05 K/uL (0-1); LYMPHOCYTES # (AUTO) 0.6 K/uL (1.0-4.8); LYMPHOCYTES % (AUTO) 5.6 % (21.0-51.0); MEAN CORPUSCULAR HEMOGLOBIN 30.6 pg (27.0-33.0); MEAN CORPUSCULAR HGB CONC 33.1 g/dL (32.0-36.0); MEAN CORPUSCULAR VOLUME 92.3 fL (79-99); MONOCYTES # (AUTO) 0.6 K/uL (0.1-1.0); MONOCYTES % (AUTO) 5.6 % (3.0-13.0); NEUTROPHILS # (AUTO) 9.8 K/uL (1.8-7.7); NEUTROPHILS % (AUTO) 88.1 % (40.0-77.0); PLATELET COUNT (AUTO) 396 K/uL (130-400); RED BLOOD CELL COUNT(AUTO) 3.89 MIL/uL (4.00-5.50); WHITE BLOOD COUNT (AUTO) 11.2 K/uL (4.8-10.8)
[2024-12-04 05:00] LABS: POTASSIUM 5.2 mmol/L (3.5-5.1)
[2024-12-04 08:00] VITALS: BP 146/72; PULSE 82; RESP 18; TEMP 98; O2SAT 95
--- NOTE | 2024-12-04 11:39 | PN ---
GASTROENTEROLOGY PROGRESS NOTE Date of Visit: December 04, 2024 Time of Visit: 11:39 Events / Notes: No acute events overnight. EGD revealing severe reflux esophagitis with scarring and stasis changes, moderate gastritis and small hiatal hernia. Review of Systems: CONSTITUTIONAL: No malaise or change in sensation of wellbeing. ENMT: No rhinorrhea, otorrhea, sinus pain, ear ache. CARDIOVASCULAR: No angina, palpitations, orthopnea or paroxysmal dyspnea. RESPIRATORY: No SOB. GASTROINTESTINAL: No abdominal pain, nausea, vomiting, diarrhea, hematemesis, melena or change in the patient's habitual bowel movements consistency/number. GENITOURINARY: No dysuria, hematuria or change in bladder continence. MUSCULOSKELETAL: No new muscle pain or decrease in muscular strength. No new joint swelling, redness or tenderness. SKIN: No new rash. Physical Exam: GEN: Awake, alert, oriented in person, time and place, and in no acute distress. HEENT: No sinus tenderness. Tympanic membranes were not examined. No rhinorrhea. Oral pharyngeal mucosa is pink, moist and within normal limits. Neck is supple with no cervical lymphadenopathy, thyromegaly or JVD. CHEST: Inspection, palpation and percussion of the chest were unremarkable. Lung auscultation revealed normal breath sounds bilaterally. CARDIAC: PMI is within normal limits. Heart sounds are regular. Normal S1, S2. No gallop or murmur. ABD: Soft, non-tender and not distended. No peritoneal signs on palpation. No organomegaly. Normal bowel sounds. EXT: No cyanosis or clubbing. No edema. SKIN: Intact. No rashes. JOINTS: No evidence of synovitis or acute arthritis. NEURO: Alert and oriented to name, place and person. Cranial nerve examination is unremarkable. No focal motor deficits. Normal speech. Gait is normal. Strength is normal. Vital Signs (last 8hr) Date Time Temp Pulse Resp B/P (MAP) Pulse Ox O2 Delivery O2 Flow Rate FiO2 12/04/24 08:00 98.1 82 18 146/72 95 Room Air 12/04/24 03:50 98.1 77 18 159/70 96 Room Air 21 Laboratory: [ ] Laboratory: Test 12/04/24 11:21 12/04/24 04:21 12/02/24 15:02 Range/Units Whole Blood Glucose 158 H 70-110 MG/DL White Blood Count 11.2 H 4.8-10.8 K/uL Red Blood Count 3.89 L 4.00-5.50 MIL/uL Hemoglobin 11.9 L 12.0-16.0 g/dL Hematocrit 35.9 L 36-48 % Mean Corpuscular Volume 92.3 79-99 fL Mean Corpuscular Hemoglobin 30.6 27.0-33.0 pg Mean Corpuscular Hemoglobin Concent 33.1 32.0-36.0 g/dL Red Cell Distribution Width 13.0 11.0-15.5 % Platelet Count 396 130-400 K/uL Mean Platelet Volume 9.8 7.5-10.5 fL Immature Granulocyte % (Auto) 0.4 0-1 % Neutrophils (%) (Auto) 88.1 H 40.0-77.0 % Lymphocytes (%) (Auto) 5.6 L 21.0-51.0 % Monocytes (%) (Auto) 5.6 3.0-13.0 % Eosinophils (%) (Auto) 0.2 0.0-8.0 % Basophils (%) (Auto) 0.1 0.0-5.0 % Neutrophils # (Auto) 9.8 H 1.8-7.7 K/uL Lymphocytes # (Auto) 0.6 L 1.0-4.8 K/uL Monocytes # (Auto) 0.6 0.1-1.0 K/uL Eosinophils # (Auto) 0.02 0.00-0.70 K/uL Basophils # (Auto) 0.01 0.00-0.20 K/uL Absolute Immature Granulocyte (auto 0.05 0-1 K/uL Nucleated Red Blood Cells 0.0 0.0-0.19 % Sodium Level 136 136-145 mmol/L Potassium Level 5.2 H 3.5-5.1 mmol/L Chloride Level 103 101-111 mmol/L Carbon Dioxide Level 27 21-32 mmol/L Blood Urea Nitrogen 26 H 7-18 mg/dL Creatinine 1.0 0.5-1.0 mg/dL Glomerular Filtration Rate Calc 59 >90 mL/min Random Glucose 215 H 70-105 mg/dL Total Calcium 8.3 L 8.5-10.1 mg/dL Stool Occult Blood POSITIVE H NEGATIVE Current Medications Medications (Trade) Dose Ordered Sig/Masood Route PRN Reason Start Time Stop Time Status Last Admin Dose Admin Ceftriaxone Sodium (ROCEphine 1G INJ) 1 gm Q24H IVPB 11/30/24 10:00 12/10/24 09:59 12/04/24 09:32 1 GM Dexamethasone Sodium Phosphate (dexaMETHasone 4MG/ML 1ML VIAL) 2 mg Q6H IV 12/03/24 19:30 01/02/25 19:29 12/04/24 05:32 2 MG Dexamethasone Sodium Phosphate (dexaMETHasone 4MG/ML 1ML VIAL) 4 mg Q6H IV 12/01/24 13:30 12/03/24 15:41 DC 12/03/24 13:46 4 MG Gabapentin (NEURontin 300 MG CAP) 300 mg DAILY PO 12/01/24 09:00 12/31/24 08:59 12/01/24 08:35 300 MG Hydralazine HCl (APRESOLine 20MG INJ) 10 mg Q6H PRN IV ADMINISTER FOR SBP > 180 11/30/24 10:30 12/30/24 10:29 Hydromorphone HCl (DiLAUDid 0.5MG INJ) 0.5 mg Q6H PRN IVP SEVERE PAIN (7-10) 11/30/24 14:30 12/05/24 14:29 12/02/24 16:00 0.5 MG Insulin Human Regular (humuLIN R 100 UNIT/ML 3ML) INSULIN SLIDING SCAL... ACHS SQ 12/01/24 21:00 12/30/24 11:59 12/04/24 06:46 3 UNIT Insulin Human Regular (humuLIN R 100 UNIT/ML 3ML) INSULIN SLIDING SCAL... Q6H6 SQ 11/30/24 12:00 12/01/24 19:55 DC Levothyroxine Sodium (SYNTHroid 75MCG TAB) 75 mcg SYN PO 12/01/24 06:30 12/31/24 06:29 12/04/24 05:33 75 MCG Ondansetron HCl (zoFRAN 4MG INJ) 4 mg Q6H PRN IVP NAUSEA/VOMITING 11/30/24 07:00 12/30/24 06:59 11/30/24 07:00 4 MG Pantoprazole Sodium (PROTonix 40MG INJ) 40 mg BID IVP 11/30/24 09:00 11/30/24 12:17 DC 11/30/24 07:00 40 MG Pantoprazole Sodium (PROTonix 40MG TAB) 40 mg BID PO 12/03/24 12:00 01/02/25 11:59 12/04/24 09:32 40 MG Pantoprazole Sodium 80 mg/ Sodium Chloride 100 ml @ 10 mls/hr Q10H IVP 11/30/24 10:00 12/03/24 11:49 DC 12/02/24 22:37 10 MLS/HR Sodium Chloride 1,000 ml @ 100 mls/hr Q10H IV 11/30/24 10:00 12/30/24 09:59 12/02/24 22:38 100 MLS/HR Diagnostics / Radiology: [COPY/PASTE HERE IF NO REPORTS PLEASE DELETE SECTION] Assessment: Severe GERD esophagitis Gastritis Hiatal hernia Plan: High dose PPI Continue GI prophylaxis Advance diet as tolerated Avoid NSAIDs Antireflux measures Monitor H&H and transfuse as needed Call with questions, concerns or change in clinical status Patient to follow-up at clinic post discharge Thank you for this consult DAMIEN OLIVEIRA ASSOCIATE TEAM PHYSICIAN December 04, 2024 11:39
[2024-12-04 12:00] VITALS: BP 143/66; PULSE 79; RESP 18; TEMP 98.4
[2024-12-04] MEDS: SODIUM ZIRCONIUM CYCLOSILICATE 5 GM POWD.PACK PO ONE ×2 (12:29→12:42)
--- NOTE | 2024-12-04 13:30 | NUR ---
Patient seen for PT this PM. Patient reports having stabbing pain to L Ischial tuberosity and proximal femur. Patient reports having hypersensitivity to skin of R quad when applying gentle pressure. Additionally, Patient reports having pain to L Lateral Malleolus when performing Hamstring stretching. Patient demonstrated difficulty standing, stating she in unable to bear full weight to LLE secondary to weakness and pain. Patient demonstrates difficulty with advancing RLE and reports she is unable to lift RLE due to pain. Patient tolerated sitting for approximately 10 minutes and c/o increasing pain to LLE. Patient returned to bed and repositioned to head of bed. Primary RN notified. Patient to continue with PT within Pt tolerance. Addendum: 12/04/24 at 1610 by PEREZ MAURER PT PT Amended: Links added.
--- NOTE | 2024-12-04 16:09 | DS ---
Discharge Summary Hospital Course Summary: 74-year-old female with past medical history of hypertension, hypothyroidism, diabetes mellitus type who presented to the hospital on 12/04/24 secondary to nausea and vomiting. Patient states pain she noted that she had vomiting which was dark colored. Daughter noted that patient had some saliva and she has been having episodes of burping at home. She reported pain in the midsternal/epigastric area. She denied any upper extremity pain, paresthesias. She was recently seen in [facility] [place] [place] [facility] secondary to lower back pain which was radiating towards her leg. She had a arterial Doppler which showed atherosclerotic disease, venous Doppler which was negative for lower extremity DVT. She follo wed up with her primary care provider and was diagnosed with sciatica. She has been taking steroids at home and denies using any NSAID therapy at home for her back pain. Secondary to non improving symptoms, patient thereafter came to the hospital for further evaluation. Labs in the ED were notable for white count of 12.6, hemoglobin was 13.6, platelet count was 454 K, sodium was 134, potassium was 4.4, creatinine is 1.4, glucose is 235, alk-phos was mildly elevated, T bili was normal, AST and ALT were also normal. The patient underwent a CT abdomen pelvis. She had mild small dilation. She was noted to have gastric distention, gallstones and distended gallbladder. General surgery was consulted and they are recommended no surgical intervention and deferred to treat GI bleed 1st. Gastroenterology was consulted and patient had EGD which showed small hiatal hernia, LA grade D reflux esophagitis with no bleeding and chronic gastritis. Upper GI and small bowel x-ray was done which revealed delayed emptying of the esophagus and dilated stomach with no evidence of SBO. GI recommended Protonix 40 mg p.o. b.i.d.. Lumbar spine MRI showed bilateral chronic spondylolysis at L5 with grade 1 anterolisthesis of L5 over S1 and bilateral mild nerve root impingement. Patient was started on 4 mg q.6 H dexamethasone. Patient is advised to follow up with neurologist as an outpatient. PT was consulted for eval and treat. Patient did walk few steps with a walker, but her daughter stated that that is her baseline. Her blood sugar and blood pressure went up because of steroids and we switched the dose of dexamethasone to 2 mg. Today patient is clinically stable her pain is improved. Potassium was 5.2 and she was given Lokelma5 g. Patient will take dexamethasone2 mg b.i.d. for5 days followed by2 mg daily for another5 days after going home. Patient will continue on Protonix 40 mg p.o. b.i.d.. Patient to follow up with PCP within 3-5 days, with Neurology and Gastroenterology within1 week upon discharge. Board Handler(s): General surgery : Dr. Warner, gastroenterology : Dr. Herrera Procedure(s): [facility] [address] [place] [address] IMAGING REPORT Signed PATIENT: JESIKA CURTIS MR#: [id number] : 1950 SEX: F AGE: 74 LOCATION: [facility] ORDER 9 STATUS: ADM IN REPORT#: [id number] SERVICE 8 REASON: hematamesis ORDERING PHYSICIAN: JORDY SANDOVAL MD PROCEDURE: ABD PEL WO - CT ABDOMEN/PELVIS W/O CONTRAST CT ABDOMEN/PELVIS W/O CONTRAST HISTORY: Hematemesis COMPARISON: None TECHNIQUE: Multiple sequential axial images of the abdomen and pelvis were obtained from the dome of the diaphragm through symphysis pubis. Patient was not given contrast through intravenous route. Oral contrast was not given. FINDINGS: No pleural effusion is seen bilaterally. There are mild interstitial fibrosis with bronchiectasis. Nonspecific pleural thickening is seen on the right. There is no evidence of parenchymal disease or pulmonary nodule of the visualized lower lungs. Grade 2 to grade 3 anterolisthesis is seen at the L5-S1 level with disc space narrowing and no foraminal stenosis. Bilateral L5 pars defects are seen. Degenerative changes of the thoracolumbar spine are present. The heart is not enlarged. Gallstones are seen in the distended gallbladder. There is gastric distention. Mild small bowel dilatation is seen. The liver, spleen, adrenal glands and pancreas are unremarkable. There is no evidence of hydronephrosis bilaterally. No evidence of renal stone is seen. Fecal material is seen in the colon. There are normal size retroperitoneal and mesenteric lymph nodes. No ascites is seen. Atherosclerotic changes are present. Uterus is enlarged suggestive of fibroid uterus. Destructive changes with fracture are seen involving the right inferior pubic ramus of indeterminate age. Pelvic sidewalls are symmetric bilaterally. Bladder is well distended without wall thickening. IMPRESSION: 1. Mild small bowel dilatation. Gallstones in the distended gallbladder. CT was performed with one or more following dose reduction techniques: automated exposure control, adjustment of the mA and kv according to patient's size, or use of a iterative reconstruction technique. DICTATED BY: CHINA ÁLVAREZ MD DATE: 11/30/24 0905 ELECTRONICALLY SIGNED BY: CHINA ÁLVAREZ MD DATE: 12/03/24749 [place] [id number] [id number] IMAGING REPORT Signed PATIENT: JESIKA CURTIS MR#: [id number] : 1950 SEX: F AGE: 74 LOCATION: [facility] ORDER 1002 STATUS: ADM IN REPORT#: [id number] SERVICE 1001 REASON: distended gall bladder ORDERING PHYSICIAN: GISSELLE ESTRADA MD PROCEDURE: ABDRUQLTD - US ABDOMINAL RUQ\LTD US ABDOMINAL RUQ\E\LTD HISTORY: Distended gallbladder COMPARISON: None TECHNIQUE: Right upper quadrant abdominal ultrasound study was performed. FINDINGS: Liver measures 13 cm. Pancreas not well-seen due to overlying bowel gas. Liver is echogenic consistent with liver parenchymal disease. Gallbladder is contracted with gallstones. Common duct measures 6 mm. Gallbladder wall measures 3 mm. Right kidney is not well visualized limiting evaluation. IMPRESSION: 1. Gallstones in the contracted gallbladder. 2. Right kidney is not visualized. DICTATED BY: CHINA ÁLVAREZ MD DATE: 11/30/24 1349 ELECTRONICALLY SIGNED BY: CHINA ÁLVAREZ MD DATE: 12/03/24 0755 [facility] [address] [address] IMAGING REPORT Signed PATIENT: JESIKA CURTIS MR#: [id number] : 1950 SEX: F AGE: 74 LOCATION: [facility] ORDER 170 STATUS: ADM IN REPORT#: [id number] SERVICE 1701 REASON: rule cholecystitis ORDERING PHYSICIAN: JOS WORLEY Jr. PROCEDURE: HIDA PHARM - NM HIDA/HEPATOBILI W/ PHARMACO NM HIDA/HEPATOBILI W/ PHARMACO REASON: rule cholecystitis. COMPARISON: None TECHNIQUE: Hepatobiliary imaging study was performed with 6.5 mCi of technetium Choletec through intravenous route. FINDINGS: Normal visualization of gallbladder and bowel activity noted within 1 hour. IMPRESSION: Normal hepatobiliary imaging study. DICTATED BY: CHINA ÁLVAREZ MD DATE: 11/30/242216 ELECTRONICALLY SIGNED BY: CHINA ÁLVAREZ MD DATE: 12/03/[address] [address] IMAGING REPORT Signed PATIENT: JESIKA CURTIS MR#: [id number] : 1950 SEX: F AGE: 74 LOCATION: H ORDER 1025 STATUS: ADM IN REPORT#: [id number] SERVICE 1017 REASON: R/O BOWEL OBSTRUCTION ORDERING PHYSICIAN: SADIE HERRERA MD PROCEDURE: UGISBFT - UPPER GI W/SMALL BOWEL Limited upper GI series and small bowel follow-through History: R/O BOWEL OBSTRUCTION Comparison: none TECHNIQUE: EXAMINATION IS DONE UNDER RADIOGRAPHIC CONTROL. FINDINGS: Upper GI examination is limited, with significant delay in emptying of the distal esophagus. However, eventually there is passage into a distended stomach. The duodenal appears unremarkable. The small bowel examination examination is unremarkable. There is no evidence of inflammatory disease to suggest ulcer. The duodenal bulb and sweep are unremarkable. There is no evidence of malrotation. The ligament of Treitz is in its expected location. The entire small bowel appears unremarkable. No obstruction is seen. No intraluminal lesions are noted. There is no dilatation of lumen. The terminal ileum is at its usual location, and there is adequate emptying into the proximal colon. IMPRESSION: Delay emptying of the esophagus. Dilated stomach. No evidence of small bowel obstruction. DICTATED BY: NAM ROWLEY MD DATE: 12/02/24 1318 ELECTRONICALLY SIGNED BY: NAM ROWLEY MD DATE: 12/03/24912 [place] [id number] [place] [id number] IMAGING REPORT Signed PATIENT: JESIKA CURTIS MR#: [id number] : 1950 SEX: F AGE: 74 LOCATION: [facility] ORDER 1244 STATUS: ADM IN REPORT#: [id number] SERVICE 1241 REASON: BILATERAL LOWER LEG PAIN ORDERING PHYSICIAN: LAURIE MORENO MD PROCEDURE: L SPN WO - MR SPINAL CANAL, LUMBAR WO CON Exam Type: MRI OF THE LUMBAR SPINE WITHOUT GADOLINIUM Clinical Information: BILATERAL LOWER LEG PAIN Comparison: None Technique: Sagittal T1 and T2 FSE, Sagittal STIR and Sagittal proton density images were completed through the lumbosacral spine. Axial T1, T2 and proton density images were also acquired. FINDINGS: Vertebral body height and disc height is preserved at all levels. The bone marrow signal is normal for age. The spinal canal contents are preserved. The conus terminates at a normal level at T12 to L2. The paraspinal muscles and other tissues show no significant abnormalities. No disc bulges or herniations are identified. Evaluation of the lumbar spine by level: T12-L1: There is no spinal canal stenosis. No disc herniation or bulge is noted. There is no neural foraminal stenosis, impingement, or narrowing. L1-L2: There is no spinal canal stenosis. No disc herniation or bulge is noted. There is no neural foraminal stenosis, impingement, or narrowing. L2-L3: There is no spinal canal stenosis. No disc herniation or bulge is noted. There is no neural foraminal stenosis, impingement, or narrowing. L3-L4: There is no spinal canal stenosis. No disc herniation or bulge is noted. There is no neural foraminal stenosis, impingement, or narrowing. L4-L5: There is no spinal canal stenosis. No disc herniation or bulge is noted. There is no neural foraminal stenosis, impingement, or narrowing. L5-S1: There is bilateral spondylolysis at L5 with grade 1 anterolisthesis of L5 over S1. This is chronic. There is neural foramina narrowing bilaterally, with bilateral mild nerve root impingement. 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 DICTATED BY: NAM ROWLEY MD DATE: 12/02/24955 ELECTRONICALLY SIGNED BY: NAM ROWLEY MD DATE: 12/03/24902 [facility] [address] [address] ELECTRO CARDIOGRAM Signed PATIENT: JESIKA CURTIS MR#: [id number] : 1950 SEX: F AGE: 74 LOCATION: [facility] ROOM/BED: [facility] ORDER 100 [id number] REPORT#: [id number] REASON: ORDERING PHYSICIAN: GISSELLE ESTRADA MD PROCEDURE: EKG - 12 LEAD EKG TRACING- TECHNICAL [facility] Test Date: 2024-11-30 Test Time: 10:08:10 Pat Name: JESIKA CURTIS Department: [facility] Room: [facility] Gender: F Track Oiler: [id number] : 1950 Requested By: GISSELLE ESTRADA Order Number: [id number] Reading MD: Sebastian Bowen Measurements Intervals [place] Rate: 93 P: 59 GA: 243 QRS: 11 QRSD: 86 T: 187 QT: 356 QTc: 442 Interpretive Statements Sinus rhythm Prolonged GA interval Nonspecific repol abnormality, diffuse leads No previous ECG available for comparison Electronically Signed On 12-01-2024 11:08:00 CDT by Sebastian Bowen Please click the below link to view image of tracing. RUN DATE: 12/04/24 [facility] PAGE 1 RUN TIME: [address] [address] Department of Laboratories CLIA # [id number] [address] Researcher: Wade Estrada DO Specimen Report PATIENT: JESIKA CURTIS ACCT: [id number] LOC: 4B U: [id number] AGE/SX: 74/F ROOM: 411 RE11/30/[address]: GISSELLE ESTRADA MD : 1950 BED: 1 DIS: STATUS: ADM IN TLOC: SPEC: [id number] AMANDEEP: 11/30/24-1215 STATUS: RES REQ: [id number] RECD: 11/30/24-[address]: GISSELLE ESTRADA MD SOURCE: BLOOD ENTR: 11/30/24-[address]: SHIVANI WARNER MD [facility]: SADIE HERRERA MD [facility] ORDERED: BLOOD CULTURE COMMENTS: What is the Source? BLOOD Procedure Result Sonya Date-Time --------- --- BLOOD CULT Preliminary 12/04/24-1234 NO GROWTH AFTER 4 DAYS Assessment/Plan: ASSESSMENT: Coffee-ground emesis POA Small hiatal hernia on EGD LA grade D reflux esophagitis on EGD Gastric distention POA differential gastric outlet obstruction versus peptic ulcer disease versus gastroparesis from underlying diabetes Cholelithiasis Midsternal/epigastric abdominal pain differential POD versus secondary to symptomatic cholelithiasis versus ACS Lower back pain differential secondary to sciatica being worked as outpatient Mild leukocytosis differential reactive versus infection Hypertension Hypothyroidism Diabetes mellitus type 2 Debility Discharge Instructions: ADMISSION DATE : 11/30/24 DISCHARGE DATE : 12/04/24 DISPOSITION : Home CONDITION : Stable Board Handler(s) : General surgery : Dr. Warner, gastroenterology : Dr. Herrera FOLLOW UP APPOINTMENTS : Patient to follow-up with the PCP within 3-5 days, w [facility] Gastroenterology and Neurology in 1 week upon discharge. PROCEDURES : Report attached to summary : EGD IMAGING (s) : Report attached to summary : CT abdomen and pelvis, abdominal ultrasound, HIDA scan, upper GI and small bowel x-ray, lumbar spine MRI and EKG MICROBIOLOGY : Report attached to summary. Blood Culture ACTIVITY : ab erika HOME MEDICATIONS : Continue NEW MEDICATIONS : Dexamethasone 2 mg b.i.d. for 5 days followed by daily for another 5 days. Protonix 40 mg b.i.d. Patient is advised to take calcium and vitamin-D supplements along with steroids. TEACHING : We reinforced the importance of medication compliance and with follow up appointments. Advised patient to follow-up with the PCP within 3-5 days, with Gastroenterology and Neurology in 1 week upon discharge. Emergency instructions : The patient was instructed to present to the nearest Emergency Department or [facility] 911 should their symptoms return or worsen. Home Medications: Reported Medications Glipizide (Glipizide) 10 Mg Tablet, 1 TAB PO ACBKFST for 30 Days, #60 TAB 0 Refills 5/3/25 Semaglutide (Rybelsus) 7 Mg Tablet, 1 TAB PO DAILY for 30 Days, #30 TAB 0 Refills DIRECTED 11/30/24 Empagliflozin (Jardiance) 10 Mg Tablet, 1 TAB PO DAILY for 30 Days, #30 TAB 0 Refills 11/30/24 Levothyroxine Sodium (Levothyroxine) 75 Mcg Capsule, 1 TAB PO DAILY for 30 Days, #30 CAP 0 Refills 11/30/24 Prednisone (Prednisone) 20 Mg Tablet, 1 TAB PO BID for 5 Days, #10 TAB 0 Refills 11/30/24 Pregabalin (Pregabalin) 25 Mg Capsule, 1 CAP PO HS PRN for OTHER [SEE ORDER COMMENTS] MDD 1 Capsule(s) for 30 Days, #30 CAP 0 Refills 11/30/24 Ondansetron HCl (Ondansetron HCl) 4 Mg Tablet, 1 TAB PO TIDP PRN for nausea/vomiting, #10 TAB 0 Refills 11/30/24 Gabapentin (Gabapentin) 100 Mg Capsule, 300 MG PO BID, CAP 11/30/24 New Medications: Dexamethasone (Dexamethasone) 2 Mg Tablet 2 MG PO BID for 5 Days, #10 TAB Dexamethasone (Dexamethasone) 2 Mg Tablet 2 MG PO ONCE for 5 Days, #5 TAB Pantoprazole Sodium (Protonix) 40 Mg Ectab 40 MG PO BID, #60 TAB.EC Continued Medications: Empagliflozin (Jardiance) 10 Mg Tablet 1 TAB PO DAILY for 30 Days, #30 TAB 0 Refills Gabapentin (Gabapentin) 100 Mg Capsule 300 MG PO BID, CAP Glipizide (Glipizide) 10 Mg Tablet 1 TAB PO ACBKFST for 30 Days, #60 TAB 0 Refills Levothyroxine Sodium (Levothyroxine) 75 Mcg Capsule 1 TAB PO DAILY for 30 Days, #30 CAP 0 Refills Ondansetron HCl (Ondansetron HCl) 4 Mg Tablet 1 TAB PO TIDP PRN for nausea/vomiting, #10 TAB 0 Refills Pregabalin (Pregabalin) 25 Mg Capsule 1 CAP PO HS PRN for OTHER [SEE ORDER COMMENTS] MDD 1 Capsule(s) for 30 Days, #30 CAP 0 Refills Semaglutide (Rybelsus) 7 Mg Tablet 1 TAB PO DAILY for 30 Days, #30 TAB 0 Refills DIRECTED Discontinued Medications: Prednisone (Prednisone) 20 Mg Tablet 1 TAB PO BID for 5 Days, #10 TAB 0 Refills Time spent arranging discharge: 1-30 minutes ATTESTATION BY PHYSICIAN I have seen and examined the patient. I reviewed the documentation, medical decision making, and treatment plan as noted by the resident provider above. I agree with the findings and plan of care. Laurie Moreno MD, KRUPALI P MD December 04, 2024 16:09
[2024-12-04] MEDS ORDERED: DEXA2TAB PO ×2 (16:19→16:20)
[2024-12-04] MEDS ORDERED: PANT40TA55 PO (16:26)
--- NOTE | 2024-12-05 17:44 | NUR ---
Transitional Phone Call Patient speaks Tajik. Spoke to patient, states she has no issues with her stomach, the vomiting was from the medication she was taking and now it's better. States she does have her new medications prescribed and Cindy Heller, Daughter is administering as instructed; no questions or concerns at this time. Patient placed Cindy Heller Daughter on the phone who states the follow up appointment is set up for a Telecomm 12/06/2024 at 0815 (due to inability to walk) with PCP - Dr. Viviana Mathews. States patient does not need to set up appointment with middleware solutions architect - Dr. Hrerera because the patient's stomach is not the issue, the lower back pain and inability to walk is the problem; per daughter patient was able to complete ADL's on her own before this. Cindy Heller Daughter requests assistance to get an appointment with a neurologist; referred to [facility]; notified Michelle. Patient currently has [facility] for physical therapy. Referred to Medical Records for MRI results for neurologist appointment.
== END 2024-12-04 17:00 | disposition home or self-care (01) | DRG 368 ==
LOC: EDH 06:36 → EDHIP 09:56 → 4BH 12:30
PROVIDERS: ADMIT Internal Medicine; ATTEND Internal Medicine
PROC: 0DB58ZX Excision of Esophagus, Via Natural or Artificial Opening Endoscopic, Diagnostic (ICD-10-PCS; principal; 2024-12-03)
PROC: 0DB78ZX Excision of Stomach, Pylorus, Via Natural or Artificial Opening Endoscopic, Diagnostic (ICD-10-PCS; 2024-12-03)
PROC: 0DB68ZX Excision of Stomach, Via Natural or Artificial Opening Endoscopic, Diagnostic (ICD-10-PCS; 2024-12-03)
DX: K21.01 Gastro-esophageal reflux disease with esophagitis, with bleeding (principal); K29.51 Unspecified chronic gastritis with bleeding; K80.10 Calculus of gallbladder with chronic cholecystitis without obstruction; K52.9 Noninfective gastroenteritis and colitis, unspecified; K44.9 Diaphragmatic hernia without obstruction or gangrene; E11.43 Type 2 diabetes mellitus with diabetic autonomic (poly)neuropathy; K31.84 Gastroparesis; E03.9 Hypothyroidism, unspecified; E78.00 Pure hypercholesterolemia, unspecified; I10 Essential (primary) hypertension; K82.8 Other specified diseases of gallbladder; M43.17 Spondylolisthesis, lumbosacral region; K31.89 Other diseases of stomach and duodenum; K29.70 Gastritis, unspecified, without bleeding; R12 Heartburn
CPT/HCPCS: 36415; 43239; 72148; 74176; 74240; 76705; 78227; 80048; 80053; 82270; 82948; 83036; 83690; 83735; 84145; 84443; 84484; 85014; 85018; 85025; 85610; 85730; 86140; 86850; 86900; 86901; 87040; 88305; 88312; 93005; 99285; A4606; A9537; G0378; J0696; J1100; J1171; J1815; J2405; J2470; J2704; J3490; J7030; J7120; Q9963; A4215; A4222; A4223; A4620

== ENCOUNTER → 2025-01-02 | Outpatient (CLI) | payer OTHER ==
[~2025-01-02] MED LIST changes: +DEXA2TAB PO; +EMPA10TA PO; +GABA-529 PO; +GLIP10TA16 PO; +LEVO75CA6 PO; +ONDA-104 PO; +PANT40TA55 PO; +PREG25CA19 PO; -REGADENOSON 0.4 MG/5 ML PF SYG IVP SCH; +SEMA7TAB2 PO
[2025-01-02 10:18] LABS: CREATININE 1.4 mg/dL (0.5-1.0)
== END | disposition home or self-care (01) ==
LOC: LAB 09:42
PROVIDERS: ATTEND Orthopaedic Surgery
DX: M89.9 Disorder of bone, unspecified (principal)
CPT/HCPCS: 36415; 82565; 84520

== ENCOUNTER 2025-05-05 10:36 | Emergency (ER) | payer OTHER ==
[~2025-05-05] VITALS: Ht 154.9 cm; Wt 79.8 kg
--- NOTE | 2025-05-05 10:46 | ERN ---
ED Note History of Present Illness Stated Complaint: WEAKNESS Chief Complaint: Fatigue Time Seen by MD: 10:43 Dictation: PATIENT IS A 75-YEAR-OLD FEMALE HERE WITH HER DAUGHTER WITH COMPLAINTS OF GENERALIZED BODY WEAKNESS AND PALPITATIONS ONSET ONE WEEK. NO FEVER NO CHILLS NO NAUSEA VOMITING. DAUGHTER STATES HER BLOOD SUGAR HAS BEEN ELEVATED SINCE THE LAST WEEK IN HIS RUNNING IN THE 120S WITH NORMAL HE IS IN HIS 70S. DAUGHTER STATES SHE IS COMPLIANT WITH HER DIABETIC MEDICATIONS. SHE STATES SHE SAW HER PRIMARY CARE DOCTOR TWO DAYS AGO WHO DRAW LABS AND SAID EVERYTHING WAS GOOD AND WAS SENDING HER THIS MORNING FOR A HOLTER MONITOR AT [facility]. THE DAUGHTER STATES THEY CHOSE TO COME [place] [facility] TO HAVE A 2ND OPINION IN THE EMERGENCY ROOM. Allergies: Coded Allergies: No Known Drug Allergies (Verified Allergy, 07/30/13) Home Meds Active Scripts Pantoprazole Sodium (Protonix) 40 Mg Ectab, 40 MG PO BID, #60 TAB.EC Prov:KELLY FAJARDO MD 12/04/24 Dexamethasone (Dexamethasone) 2 Mg Tablet, 2 MG PO ONCE for 5 Days, #5 TAB Prov:KELLY FAJARDO MD 12/04/24 Dexamethasone (Dexamethasone) 2 Mg Tablet, 2 MG PO BID for 5 Days, #10 TAB Prov:KELLY FAJARDO MD 12/04/24 Reported Medications Glipizide (Glipizide) 10 Mg Tablet, 1 TAB PO ACBKFST for 30 Days, #60 TAB 0 Refills 11/30/24 Semaglutide (Rybelsus) 7 Mg Tablet, 1 TAB PO DAILY for 30 Days, #30 TAB 0 Refills DIRECTED 11/30/24 Empagliflozin (Jardiance) 10 Mg Tablet, 1 TAB PO DAILY for 30 Days, #30 TAB 0 Refills 11/30/24 Levothyroxine Sodium (Levothyroxine) 75 Mcg Capsule, 1 TAB PO DAILY for 30 Days, #30 CAP 0 Refills 11/30/24 Pregabalin (Pregabalin) 25 Mg Capsule, 1 CAP PO HS PRN for OTHER [SEE ORDER COMMENTS] MDD 1 Capsule(s) for 30 Days, #30 CAP 0 Refills 11/30/24 Ondansetron HCl (Ondansetron HCl) 4 Mg Tablet, 1 TAB PO TIDP PRN for nausea/vomiting, #10 TAB 0 Refills 5/3/25 Gabapentin (Gabapentin) 100 Mg Capsule, 300 MG PO BID, CAP 11/30/24 Past Medical History Past Medical History: Arthritis, Diabetes-Type II, High Cholesterol Surgical History: None History: Not Applicable RN Note Reviewed/Agreed w/PFSH: Yes Review of System Dictation CONSTITUTIONAL: NEGATIVE EXCEPT FOR HPI GB W/FATIGUE HEAD/FACE: NEGATIVE EXCEPT FOR HPI EENT: NEGATIVE EXCEPT FOR HPI RESPIRATORY: NEGATIVE EXCEPT FOR HPI PALPITATIONS GASTROINTESTINAL/ABDOMINAL: NEGATIVE EXCEPT FOR HPI GENITOURINARY: NEGATIVE EXCEPT FOR HPI MUSCULOSKELETAL: NEGATIVE EXCEPT FOR HPI INTEGUMENTARY: NEGATIVE EXCEPT FOR HPI NEUROLOGICAL/PSYCH: NEGATIVE EXCEPT FOR HPI HEMATOLOGIC/LYMPHATIC: NEGATIVE EXCEPT FOR HPI ALL SYSTEMS NEGATIVE, EXCEPT NOTED ABOVE. 13 POINT REVIEW OF SYSTEMS ASSESSED AND ALL NEGATIVE EXCEPT FOR ABOVE. Initial Vital Sign VS Vital Signs Date Time Temp Pulse Resp B/P (MAP) Pulse Ox O2 Delivery O2 Flow Rate FiO2 05/05/25 10:39 98.1 106 16 142/67 99 Room Air 0 Physical Exam Dictation VITAL SIGNS REVIEWED GENERAL APPEARANCE: ALERT, ORIENTED X 3, NO ACUTE DISTRESS, WELL DEVELOPED, NOURISHED. OBESE DECONDITIONED HEAD AND FACE: NON-TRAUMATIC. EYES: PERRL, PINK CONJUNCTIVAS, EYELID NO TRAUMA, ANTERIOR CHAMBER WITH ARCUS SENILIS. EARS: PINNAS INTACT AND NO SIGNS OF TRAUMA OR ERYTHEMA EAR CANALS CLEAR AND NO DISCHARGE TM NO ERYTHEMA NOSE: NO DISCHARGE, NO BLEEDING. 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 RECTAL: DEFERRED GENITAL: DEFERRED NEUROLOGICAL: NORMAL SPEECH, MOTOR FUNCTION INTACT, SENSORY FUNCTION INTACT MUSCULOSKELETAL: NECK NONTENDER, FULL RANGE OF MOTION, BACK NONTENDER, FULL RANGE OF MOTION, EXTREMITIES: NONTENDER, FULL RANGE OF MOTION SKIN: COLOR PINK, DRY, NO TURGOR, NO RASH, NO LACERATIONS, NO ABRASIONS, NO CONTUSIONS. LYMPHATIC: DEFERRED Results (Laboratory/Radiology) Laboratory/Radiology Laboratory Tests Test 05/05/25 10:50 White Blood Count 7.7 K/uL (4.8-10.8) Red Blood Count 4.93 MIL/uL (4.00-5.50) Hemoglobin 14.3 g/dL (12.0-16.0) Hematocrit 43.3 % (36-48) Mean Corpuscular Volume 87.8 fL (79-99) Mean Corpuscular Hemoglobin 29.0 pg (27.0-33.0) Mean Corpuscular Hemoglobin Concent 33.0 g/dL (32.0-36.0) Red Cell Distribution Width 13.0 % (11.0-15.5) Platelet Count 302 K/uL (130-400) Mean Platelet Volume 10.1 fL (7.5-10.5) Immature Granulocyte % (Auto) 0.1 % (0-1) Neutrophils (%) (Auto) 69.1 % (40.0-77.0) Lymphocytes (%) (Auto) 24.2 % (21.0-51.0) Monocytes (%) (Auto) 5.6 % (3.0-13.0) Eosinophils (%) (Auto) 0.5 % (0.0-8.0) Basophils (%) (Auto) 0.5 % (0.0-5.0) Neutrophils # (Auto) 5.3 K/uL (1.8-7.7) Lymphocytes # (Auto) 1.9 K/uL (1.0-4.8) Monocytes # (Auto) 0.4 K/uL (0.1-1.0) Eosinophils # (Auto) 0.04 K/uL (0.00-0.70) Basophils # (Auto) 0.04 K/uL (0.00-0.20) Absolute Immature Granulocyte (auto 0.01 K/uL (0-1) Nucleated Red Blood Cells 0.0 % (0.0-0.19) Sodium Level 137 mmol/L (136-145) Potassium Level 4.8 mmol/L (3.5-5.1) Chloride Level 101 mmol/L (101-111) Carbon Dioxide Level 26 mmol/L (21-32) Blood Urea Nitrogen 27 mg/dL (7-18) H Creatinine 1.3 mg/dL (0.5-1.0) H Glomerular Filtration Rate Calc 43 mL/min (>90) Random Glucose 203 mg/dL (70-105) H Total Calcium 8.8 mg/dL (8.5-10.1) Magnesium Level 2.20 mg/dL (1.80-2.40) Troponin I High Sensitivity 8 ng/L (4-50) B-Type Natriuretic Peptide 155 pg/mL (0-100) H EXAM: CR Chest, 1 View. CLINICAL HISTORY: CHEST PAIN/SOB COMPARISON: None provided. FINDINGS: LUNGS: There is no mass, infiltrate, or acute pulmonary abnormality. PLEURAL SPACES: No evidence of pleural effusion or pneumothorax. MEDIASTINUM: Cardiac size and mediastinal contours within normal limits. BONES: No aggressive appearing osseous lesion seen. IMPRESSION: No acute cardiopulmonary pathology is evident. /[facility] Reviewed?: Yes EKG Comment: 1047/EKG SINUS RHYTHM WITH FIRST-DEGREE AV BLOCK/HEART RATE 89/PACS AND COUPLETS. CHRONIC CHANGES IN LEADS V4 FIVE AND SIX ED Course ED Course Orders Procedure Category Date Status Time B-Type Natriuretic LAB 05/05/25 Complete Peptide 10:44 Cbc With Differential LAB 05/05/25 Complete 10:44 Chest 1vw RAD 05/05/25 Resulted 10:44 12 Lead Ekg Tracing- EKG 05/05/25 Complete Technical 10:44 Magnesium LAB 05/05/25 Complete 10:44 Troponin I High LAB 05/05/25 Complete Sensitivity 10:44 Urinalysis Profile LAB 05/05/25 Logged 10:44 Basic Metabolic Panel LAB 05/05/25 Complete 10:44 Vital Signs Date Time Temp Pulse Resp B/P (MAP) Pulse Ox O2 Delivery O2 Flow Rate FiO2 05/05/25 10:39 98.1 106 16 142/67 99 Room Air 0 1305/PATIENT WILL BE DISCHARGED HOME WITH A DAUGHTER WITH PALPITATIONS, STAGE 3 CHRONIC KIDNEY DISEASE AND DIABETES WITH HYPERGLYCEMIA. SHE WILL BE INSTRUCTED TO GO GET THE HOLTER MONITOR AT [facility] PER HER DOCTOR'S ORDER. HEART Score Response (Comments) Value EKG: Repolarization changes 1 Age: > 65yrs (+2) 2 Risk Factors: 1-2 risk factors (+1) 1 Initial Troponin: Normal limit (0) 0 Total 4 Medical Decision Making MDM MDM: DIFFERENTIAL DIAGNOSIS: ACS/AMI/ELECTROLYTE IMBALANCE/DEHYDRATION/PNEUMONIA/BRONCHITIS/PALPITATIONS/ANXIETY RATIONALE: TESTS CONSIDERED AND ORDERED SECONDARY TO SHARED DECISION MAKING INCLUDE: EKG/LABS/RADIOLOGY PREVIOUS OUTSIDE RECORDS REVIEWED: OLD ER VISITS. RISK OF COMPLICATION AND/OR MORBIDITY OR MORTALITY OF PATIENT MANAGEMENT: NONE MEDICATIONS-PER MEDICATION RECONCILIATION NEED FOR HOSPITALIZATION: PATIENT DOES NOT MEET CRITERIA FOR HOSPITALIZATION. NONE NEED FOR EMERGENCY MAJOR/MINOR SURGERY: NO THERE ARE NO SOCIAL CONCERNS WITH THIS PATIENT. PRESCRIPTION DRUG MANAGEMENT NONE PRESCRIPTIONS WILL INCLUDE SYMPTOMATIC CARE PATIENT'S PRIOR EXTERNAL MEDICAL RECORDS FROM OTHER ER VISITS WERE REVIEWED BY ME INDICATED. PRIOR TESTING AND RESULTS FROM PREVIOUS VISITS WERE REVIEWED. PRIOR TESTS WERE TAKEN INTO ACCOUNT WITH MEDICAL DECISION MAKING AND RESOURCE UTILIZATION, INDEPENDENT HISTORIAN/HISTORIANS WERE USED TO OBTAIN COMPLETE MEDICAL HISTORY. I INDEPENDENTLY INTERPRETED THE TEST THAT WERE PERFORMED, RESULTS WERE REVIEWED BY ME AND CONSIDERED FINDINGS ON RADIOLOGY IF ORDERED. MEDICAL MANAGEMENT AND EXAMINATION INTERPRETATION DISCUSSIONS WERE HAD BY ME WITH OTHER QUALIFIED HEALTHCARE PROFESSIONALS INDICATED FOR THE PATIENT'S CARE. DX & DISP Disposition: Discharge Departure Impression: Primary Impression: Palpitations Additional Impressions: Stage 3 chronic kidney disease, Diabetes mellitus with hyperglycemia Condition: Stable Additional Instructions: FOLLOW-UP WITH PRIMARY CARE PROVIDER IN 1 TO 2 DAYS. TAKE MEDICATIONS DIRECTED HERE IN THE EMERGENCY ROOM. OKAY TO CONTINUE HOME MEDICATIONS UNLESS OTHERWISE DISCUSSED DURING YOUR VISIT IN THE EMERGENCY ROOM TODAY. RETURN TO YOUR NEAREST EMERGENCY ROOM IF SYMPTOMS WORSEN OR IF THERE IS NO IMPROVEMENT. CALL 911 IF YOU NEED IMMEDIATE ASSISTANCE. TAKE TYLENOL OR MOTRIN OVER-THE-CO UNTER NEEDED AND IF NO CONTRAINDICATIONS ARE PRESENT. INCREASE ORAL HYDRATION. A WOUND CULTURE OR URINE CULTURE WAS ORDERED HERE IN THE EMERGENCY ROOM DEPARTMENT PLEASE FOLLOW-UP WITH PRIMARY CARE PROVIDER AND ADVISE THEM TO GET REPEAT PORTS FROM OUR FACILITY. IF YOU HAD ANY LILA WRAP/SPLINTS THAT WERE APPLIED HERE, PLEASE DO NOT REMOVE THEM UNTIL YOU SEE YOUR PRIMARY CARE OR SPECIALTY. CONTINUE WITH THE ALL MEDICATIONS AND TREATMENTS FROM YOUR DOCTOR. GO TODAY TO HAVE THE HOLTER MONITOR PLACED THAT WAS ORDERED BY YOUR DOCTOR AND FOLLOW BACK UP WITH HER. Referrals: REBECCA DAVIS M.D. (PCP) Time of Disposition: 13:08 and I agree with, Diagnosis and Plan DAY HUMPHREY NP May 05, 2025 10:46
[2025-05-05 10:56] LABS: IMMATURE GRANULOCYTE ABSOLUTE 0.01 K/uL (0-1); NUCLEATED RED BLOOD CELLS 0.0 % (0.0-0.19); PLATELET COUNT (AUTO) 302 K/uL (130-400); RED BLOOD CELL COUNT(AUTO) 4.93 MIL/uL (4.00-5.50); RED CELL DISTRIBUTION WIDTH 13.0 % (11.0-15.5); WHITE BLOOD COUNT (AUTO) 7.7 K/uL (4.8-10.8)
[2025-05-05 11:11] LABS: CREATININE 1.3 mg/dL (0.5-1.0); GLOMERULAR FILTR. RATE CALC 43.0 mL/min (>90); GLUCOSE,RANDOM 203.0 mg/dL (70-105); SODIUM SERUM 137.0 mmol/L (136-145); UREA NITROGEN, BLOOD 27.0 mg/dL (7-18)
--- NOTE | 2025-05-05 12:20 | EKG ---
[facility] Test Date: 2025-05-05 Test Time: 10:47:35 Pat Name: JESIKA CURTIS Department: ED Room: Gender: F Dry [employer] Worker: [id number] : 1950 Requested By: DAY HUMPHREY Order Number: [id number] Reading MD: Ivanna Qureshi Measurements Intervals [place] Rate: 89 P: 67 SD: 267 QRS: 42 QRSD: 82 T: 68 QT: 381 QTc: 445 Interpretive Statements Sinus rhythm Atrial premature complexes in couplets Prolonged SD interval Probable anteroseptal infarct, old Compared to ECG 11/30/2024 10:08:10 Atrial premature complex(es) now present Myocardial infarct finding now present Early repolarization no longer present Electronically Signed On 05-06-2025 16:11:15 CDT by Ivanna Qureshi Please click the below link to view image of tracing.
--- NOTE | 2025-05-05 12:32 | HMCIMG ---
EXAM: CR Chest, 1 View. CLINICAL HISTORY: CHEST PAIN/SOB COMPARISON: None provided. FINDINGS: LUNGS: There is no mass, infiltrate, or acute pulmonary abnormality. PLEURAL SPACES: No evidence of pleural effusion or pneumothorax. MEDIASTINUM: Cardiac size and mediastinal contours within normal limits. BONES: No aggressive appearing osseous lesion seen. IMPRESSION: No acute cardiopulmonary pathology is evident. /[place]
[2025-05-05 13:55] VITALS: BP 150/80; PULSE 99; RESP 17; TEMP 98.1; O2SAT 98
== END 2025-05-05 14:04 | disposition home or self-care (01) ==
LOC: EDH 10:36
DX: R00.2 Palpitations (principal); E11.22 Type 2 diabetes mellitus with diabetic chronic kidney disease; N18.30 Chronic kidney disease, stage 3 unspecified; E11.65 Type 2 diabetes mellitus with hyperglycemia; E78.00 Pure hypercholesterolemia, unspecified; M19.90 Unspecified osteoarthritis, unspecified site; Z79.52 Long term (current) use of systemic steroids; Z79.84 Long term (current) use of oral hypoglycemic drugs; Z79.890 Hormone replacement therapy; Z79.899 Other long term (current) drug therapy
CPT/HCPCS: 36415; 71045; 80048; 83735; 83880; 84484; 85025; 93005; 99285